=== PATIENT | female | born 1935 | race Caucasian/White ===

== ENCOUNTER → 2017-03-21 | Day surgery (SDC) | payer MEDICARE ==
[~2017-03-21] MED LIST: ALEN70TA39 PO; ATROPINE SULFATE 1% OPHT SOLN 5 ML BTL ONE; BUPR-86 PO; BUSP5 PO; CALC600T34 PO; DEXAMETHASONE SOD PHOS 4 MG/ML VIAL ONE; EPINEPHrine HCL (1:1000) 1 MG/ML VIAL ONE; FLURBIPROFEN 0.03% OPHT SOLN 2.5 ML BTL ONE; GALA4 PO; HYALURONIDASE/LIDOCAINE/BUPIVACAINE 11 ML SYR TL ONE; LACTATED RINGER'S 1000 ML INJ 1,000 ML ONE; LEVO75TA3 PO; MAGN400 PO; MICA40TA2 PO; NEOMYCIN/POLYMYXIN/DEXAMETHASONE OPTH OINT 3.5 GM TUBE ONE; PHENYLEPHRINE HCL 2.5 % OPTH SOLN 15 ML BTL ONE; PRIS50TA PO; REFR0.5D4 EACH EYE; SODIUM CHLORIDE 0.9% INJ 10 ML ONE; ST JTAB PO; TETRACAINE 0.5% OPTH SOLN 15 ML BTL ONE; TRIAMCINOLONE ACETONIDE 40 MG/ML VIAL ONE; TROPICAMIDE 1% OPHT SOLN 15 ML BTL ONE; VITA400C28 PO; ZOCO80TA PO; ceFAZolin INJ 1,000 MG VIAL ONE
--- NOTE | 2017-04-07 20:27 | MP ---
cc: CALROS JUAN MD DATE OF SURGERY: 03/21/2017. PREOPERATIVE DIAGNOSIS: Branch retinal vein occlusion and nonclearing vitreous hemorrhage, right eye. POSTOPERATIVE DIAGNOSIS: Branch retinal vein occlusion and nonclearing vitreous hemorrhage, right eye. OPERATION: Pars plana vitrectomy, endolaser, right eye. SURGEON: Carlos Juan MD ANESTHESIA: MAC. COMPLICATIONS: None. DESCRIPTION OF THE PROCEDURE IN DETAIL: After the patient was given informed consent and retrobulbar anesthesia, she was brought to the operating room and prepared and draped in the usual sterile fashion. A wire lid speculum was placed in the patient's right eye. 23-gauge vitrectomy cannulas were then placed in the lower temporal, supratemporal and supranasal quadrants 3 mm posterior to the corneoscleral limits. An infusion cannula was placed temporally. Core vitrectomy was then performed. There were several attachments of the posterior vitreous to fibrovascular tissue which was easily excised using the vitreous cutter and vitrectomy was carried out as far as possible to the vitreous base. Some additional endolaser was used to place laser in areas of ischemic retina. Careful indirect ophthalmoscopy with scleral depressions was then performed. No peripheral ___ were noted. The three vitrectomy cannulas were then removed. Subconjunctival injections of dexamethasone and Ancef were placed. An Atropine drop, Maxitrol ointment, patch and shield were then applied. The patient tolerated the procedure well. There were no complications. She will follow up tomorrow in our [facility]. Carlos Juan MD TAB/JC /7:41 PM /8:13 PM
== END | disposition home or self-care (01) ==
LOC: ESDC 12:05
PROVIDERS: ATTEND Ophthalmology Retina Specialist
DX: H43.11 Vitreous hemorrhage, right eye (principal)
CPT/HCPCS: 00145; 67043; J0171; J0690; J1100; J7120; J3301

== ENCOUNTER 2018-08-23 12:24 | Inpatient (IN) ==
[2018-08-23 13:21] LABS: Baso # (Auto) 0.1 th/mm3 (0.0-0.2); Baso % (Auto) 0.9 % (0.0-2.0); Eos # (Auto) 0.1 th/mm3 (0.0-0.4); Eos % (Auto) 1.4 % (0.0-4.0); Hemoglobin 8.9 gm/dL (11.6-15.3); Lymph # (Auto) 1.1 th/mm3 (1.0-4.8); Lymph % (Auto) 14.2 % (9.0-44.0); Mean Corpuscular HGB Conc 34.1 % (32.0-36.0); Mean Corpuscular Hemoglobin 31.4 pg (27.0-34.0); Mean Corpuscular Volume 92.3 fL (80.0-100.0); Mean Platelet Volume 8.8 fL (7.0-11.0); Mono # (Auto) 1.2 th/mm3 (0.0-0.9); Mono % (Auto) 16.1 % (0.0-8.0); Neut # (Auto) 5.1 th/mm3 (1.8-7.7); Neut % (Auto) 67.4 % (16.0-70.0); Platelet Count 250 th/mm3 (150-450); Red Blood Count 2.82 mil/mm3 (4.00-5.30); White Blood Count 7.6 th/mm3 (4.0-11.0)
[2018-08-23 13:31] LABS: Activated Partial Thrombo Time 22.2 sec (23.4-31.7); Prothrombin Time 10.2 sec (9.8-11.6)
--- NOTE | 2018-08-23 13:33 | ED ---
HPI General Chief complaint: GI Bleed Stated complaint: GI Time Seen by Provider: 08/23/18 12:56 Source: patient and family Mode of arrival: ambulatory Limitations: no limitations History of Present Illness HPI Narrative: 83-year-old female with a history of gastric ulcers and anemia presents to the emergency department for evaluation of melanotic stools, weakness, nausea and vomiting, and leg cramping that started a couple days ago. She states that she is due for a colonoscopy and EGD next Sunday but does not feel like she can wait until then because she feels weak. Her last bowel movement was this morning and was normal except for the dark stool. She denies chest pain, shortness of breath, heart palpitations, fever or chills. She denies abdominal pain or diarrhea. 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 Her primary care physician is Dr. Hodge and her psychiatrist is Dr. Renteria. She states her last colonoscopy and EGD was about 2 years ago. Denies history of cardiac problems or history. Does not take blood thinners or anticoagulants. Related Data Home Medications Medication Instructions Recorded Confirmed bupropion HCl 150 mg PO QAM 08/23/18 08/23/18 buspirone 5 mg PO TID 08/23/18 08/23/18 calcium carbonate [Calcium 600] 600 mg PO BID 08/23/18 08/23/18 cholecalciferol (vitamin D3) 400 unit PO DAILY 08/23/18 08/23/18 [Vitamin D3] desvenlafaxine 50 mg PO DAILY 08/23/18 08/23/18 galantamine 16 mg PO QAM 08/23/18 08/23/18 iron fum,ax-wdpay-Ifpdl,C no.9 1 cap PO DAILY 08/23/18 08/23/18 [Integra Plus] levothyroxine 125 mcg PO DAILY 08/23/18 08/23/18 magnesium oxide 400 mg PO DAILY 08/23/18 08/23/18 memantine 10 mg PO DAILY 08/23/18 08/23/18 simvastatin 80 mg PO QPM 08/23/18 08/23/18 telmisartan 40 mg PO DAILY 08/23/18 08/23/18 Allergies Allergy/AdvReac Type Severity Reaction Status Date / Time Sulfa (Sulfonamide Allergy Intermediate UNK Verified 08/23/18 14:02 Antibiotics) tobramycin [From Tobrex] Allergy Drowsiness Verified 08/23/18 14:02 Review of Systems ROS: all other systems reviewed are negative PMFSH Social History Social History Substance History: No History of Abuse Second Hand Smoke Exposure: No Smoking Status: Never smoker How Often Do You Have a Drink Containing Alcohol: Never Recent Travel in [facility] within the Last 8 Weeks: No Recent Out of Country Travel within the Last 8 Weeks: No Immunization History Tetanus Immunization: Unsure Exam Narrative Exam Narrative: GENERAL: Well-developed, well-nourished in no acute distress SKIN: Focused skin assessment warm/dry. Pale conjunctiva, pale skin HEAD: Atraumatic. Normocephalic. EYES: Pupils equal and round. No scleral icterus. No injection or drainage. ENT: No nasal bleeding or discharge. Mucous membranes pink and moist. NECK: Trachea midline. No JVD. No lymphadenopathy CARDIOVASCULAR: Regular rate and rhythm. No murmur appreciated. RESPIRATORY: No accessory muscle use. Clear to auscultation. Breath sounds equal bilaterally. GASTROINTESTINAL: Abdomen soft, non-tender, nondistended. Hepatic and splenic margins not palpable. Rectal exam performed with nurse present-old hemorrhoids, nonbleeding present. Good rectal tone. Black stool MUSCULOSKELETAL: No obvious deformities. No clubbing. No cyanosis. No edema. No tenderness to palpation of the calves NEUROLOGICAL: Awake and alert. No obvious cranial nerve deficits. Motor grossly within normal limits. Normal speech. PSYCHIATRIC: Appropriate mood and affect; insight and judgment normal. Course Initial Documented Vital Signs Temperature 97.5 F L 08/23/18 12:31 Pulse Rate 68 08/23/18 12:31 Respiratory Rate 18 08/23/18 12:31 Blood Pressure 119/58 L 08/23/18 12:31 Pulse Oximetry 100 08/23/18 12:31 Last Documented Vital Signs Temperature 97.7 F 08/26/18 10:53 Pulse Rate 68 08/26/18 12:12 Respiratory Rate 16 08/26/18 12:12 Blood Pressure 126/77 08/26/18 12:12 Pulse Oximetry 94 L 08/26/18 12:12 Medical Decision Making BRIANNA Attestation BRIANNA supervised visit: Yes Attestation: I, Dr. Mcbride, have reviewed the advance practice practitioner's documentation and am in agreement, met with the patient face to face, made the diagnosis, and the medical decision making was done by me. *My assessment and Findings: Symptomatic anemia vs. GI bleed vs. peptic ulcer vs. gastritis 83yo F with gastric ulcer here with new generalized weakness and black tarry stool. Labs reviewed, no leukocytosis. H/H low at 8.9/26.0. It was 12.2/ 35.8 in 2013. BUN/creatinine elevated at 33/1.26. Troponin negative. Hemaprompt positive. Discussed with Dr. Cordon and accepted to his service. MDM Narrative Medical decision making narrative: 83-year-old female with a history of gastric ulcers and anemia presents to the emergency department evaluation of nausea, one episode of nonbloody vomitus, black stools, and weakness that worsened today. Says she is due for colonoscopy and EGD Sunday with Dr. Pelletier but her friends advised to come in sooner as she feels weak. Her last EDG/ colonoscopy was 2 years ago, per family. Upon exam, patient appears pale but well does not appear anxious. Her abdomen is soft, nontender to palpation without rebound tenderness. Rectal exam with good rectal tone, nonbleeding hemorrhoids, and black stool. Hemoccult positive stool. Labs ordered for evaluation and notable for RBC 2.82, H/H 8.9/26.0, INR 1.0, Na 140, K 4.5, BUN/Cr 33/1.26, troponin <0.02, UA noncontributory. EKG show sinus rhythm rate [address] elevation or depression. 500mL NS administered for hydration. I discussed the lab findings and believe she would benefit admission for an observation period. She has anemia, which appears new to her from the labs in 2013. Also has a GI bleed with melena and Hemoccult positive stool. My attending discussed this case with Dr. Garcia who agreed to the admission. Medical Screen Exam Complete: Yes Emergency Medical Condition: Yes Differential Diagnosis Differential Diagnosis: Acute anemia, GI bleed, gastric ulcer Lab Data Result diagrams: 08/26/18 04:35 08/24/18 07:41 Lab Results 08/23/18 08/23/18 08/23/18 Range/Units 13:08 13:08 13:08 WBC 7.6 (4.0-11.0) th/mm3 RBC 2.82 L (4.00-5.30) mil/mm3 Hgb 8.9 L (11.6-15.3) gm/dL Hct 26.0 L (35.0-46.0) % MCV 92.3 (80.0-100.0) fL MCH 31.4 (27.0-34.0) pg MCHC 34.1 (32.0-36.0) % RDW 14.0 (11.6-17.2) % Plt Count 250 (150-450) th/mm3 MPV 8.8 (7.0-11.0) fL Neut % (Auto) 67.4 (16.0-70.0) % Lymph % (Auto) 14.2 (9.0-44.0) % [place] % (Auto) 16.1 H (0.0-8.0) % Eos % (Auto) 1.4 (0.0-4.0) % Baso % (Auto) 0.9 (0.0-2.0) % Neut # (Auto) 5.1 (1.8-7.7) th/mm3 Lymph # (Auto) 1.1 (1.0-4.8) th/mm3 [place] # (Auto) 1.2 H (0.0-0.9) th/mm3 Eos # (Auto) 0.1 (0.0-0.4) th/mm3 Baso # (Auto) 0.1 (0.0-0.2) th/mm3 WBC Differential . Differential Comment Auto diff final PT 10.2 (9.8-11.6) sec INR 1.0 Ratio APTT 22.2 L (23.4-31.7) sec Sodium 140 (136-145) meq/L Potassium 4.5 (3.5-5.1) meq/L Chloride 107 (98-107) meq/L Carbon Dioxide 26.7 (21.0-32.0) meq/L Anion Gap 6 (5-15) meq/L BUN 33 H (7-18) mg/dL Creatinine 1.26 H (0.50-1.00) mg/dL Estimated GFR 40 L (>89) mL/min Random Glucose 80 (74-106) mg/dL Calcium 8.6 (8.5-10.1) mg/dL Magnesium 2.2 (1.5-2.5) mg/dL Iron (50-170) mcg/dL TIBC (250-450) mcg/dL % Saturation (20-50) % Ferritin (8-252) ng/mL Total Bilirubin 0.4 (0.2-1.0) mg/dL AST 15 (15-37) U/L ALT 20 (10-53) U/L Alkaline Phosphatase 25 L (45-117) U/L Troponin I Less than 0.02 L (0.02-0.05) ng/mL Total Protein 6.9 (6.4-8.2) g/dL Albumin 3.6 (3.4-5.0) g/dL Urine Color (Yellw/Straw) Urine Clarity (Clear) Urine pH (5.0-8.5) Ur Specific [place] (1.002-1.035) Urine Protein (Neg-Trace) mg/dL Urine Glucose (UA) (Negative) mg/dL Urine Ketones (Negative) mg/dL Urine Occult Blood (Negative) Urine Nitrate (Negative) Urine Bilirubin (Negative) Urine Urobilinogen (Less than 2) mg/dL Ur Leukocyte Esterase (Negative) Urine RBC (0-3) /hpf Urine WBC (0-5) /hpf Urine Mucus (Occasional) /lpf Micro UA Comment Ur Microscopic Review Urine Culture Comments Blood Type Antibody Screen MTS Gel Crossmatch Bld Prod Order Comment 08/23/18 08/24/18 08/24/18 Range/Units 13:22 07:41 07:41 WBC 8.6 (4.0-11.0) th/mm3 RBC 2.78 L (4.00-5.30) mil/mm3 Hgb 8.8 L (11.6-15.3) gm/dL Hct 25.8 L (35.0-46.0) % MCV 92.8 (80.0-100.0) fL MCH 31.5 (27.0-34.0) pg MCHC 33.9 (32.0-36.0) % RDW 14.0 (11.6-17.2) % Plt Count 238 (150-450) th/mm3 MPV 8.6 (7.0-11.0) fL Neut % (Auto) 72.3 H (16.0-70.0) % Lymph % (Auto) 11.5 (9.0-44.0) % [place] % (Auto) 14.1 H (0.0-8.0) % Eos % (Auto) 1.5 (0.0-4.0) % Baso % (Auto) 0.6 (0.0-2.0) % Neut # (Auto) 6.2 (1.8-7.7) th/mm3 Lymph # (Auto) 1.0 (1.0-4.8) th/mm3 [place] # (Auto) 1.2 H (0.0-0.9) th/mm3 Eos # (Auto) 0.1 (0.0-0.4) th/mm3 Baso # (Auto) 0.1 (0.0-0.2) th/mm3 WBC Differential . Differential Comment Auto diff final PT (9.8-11.6) sec INR Ratio APTT (23.4-31.7) sec Sodium 142 (136-145) meq/L Potassium 4.3 (3.5-5.1) meq/L Chloride 109 H (98-107) meq/L Carbon Dioxide 25.8 (21.0-32.0) meq/L Anion Gap 7 (5-15) meq/L BUN 29 H (7-18) mg/dL Creatinine 1.29 H (0.50-1.00) mg/dL Estimated GFR 39 L (>89) mL/min Random Glucose 85 (74-106) mg/dL Calcium 9.0 (8.5-10.1) mg/dL Magnesium (1.5-2.5) mg/dL Iron (50-170) mcg/dL TIBC (250-450) mcg/dL % Saturation (20-50) % Ferritin (8-252) ng/mL Total Bilirubin 0.4 (0.2-1.0) mg/dL AST 16 (15-37) U/L ALT 16 (10-53) U/L Alkaline Phosphatase 25 L (45-117) U/L Troponin I (0.02-0.05) ng/mL Total Protein 6.6 (6.4-8.2) g/dL Albumin 3.3 L (3.4-5.0) g/dL Urine Color Yellow (Yellw/Straw) Urine Clarity Clear (Clear) Urine pH 5.0 (5.0-8.5) Ur Specific [place] 1.015 (1.002-1.035) Urine Protein Negative (Neg-Trace) mg/dL Urine Glucose (UA) Negative (Negative) mg/dL Urine Ketones Negative (Negative) mg/dL Urine Occult Blood Negative (Negative) Urine Nitrate Negative (Negative) Urine Bilirubin Negative (Negative) Urine Urobilinogen Less than 2 (Less than 2) mg/dL Ur Leukocyte Esterase Negative (Negative) Urine RBC 1 (0-3) /hpf Urine WBC 2 (0-5) /hpf Urine Mucus Few H (Occasional) /lpf Micro UA Comment Culture not ind Ur Microscopic Review Not Reportable Urine Culture Comments Culture not ind Blood Type Antibody Screen MTS Gel Crossmatch Bld Prod Order Comment 08/24/18 08/25/18 08/25/18 Range/Units 07:41 07:45 14:32 WBC 8.7 (4.0-11.0) th/mm3 RBC 2.49 L (4.00-5.30) mil/mm3 Hgb 7.8 L (11.6-15.3) gm/dL Hct 23.2 L (35.0-46.0) % MCV 93.2 (80.0-100.0) fL MCH 31.3 (27.0-34.0) pg MCHC 33.6 (32.0-36.0) % RDW 14.0 (11.6-17.2) % Plt Count 210 (150-450) th/mm3 MPV 8.5 (7.0-11.0) fL Neut % (Auto) 69.3 (16.0-70.0) % Lymph % (Auto) 12.4 (9.0-44.0) % [place] % (Auto) 17.4 H (0.0-8.0) % Eos % (Auto) 0.5 (0.0-4.0) % Baso % (Auto) 0.4 (0.0-2.0) % Neut # (Auto) 6.0 (1.8-7.7) th/mm3 Lymph # (Auto) 1.1 (1.0-4.8) th/mm3 [place] # (Auto) 1.5 H (0.0-0.9) th/mm3 Eos # (Auto) 0.0 (0.0-0.4) th/mm3 Baso # (Auto) 0.0 (0.0-0.2) th/mm3 WBC Differential . Differential Comment Auto diff final PT (9.8-11.6) sec INR Ratio APTT (23.4-31.7) sec Sodium (136-145) meq/L Potassium (3.5-5.1) meq/L Chloride (98-107) meq/L Carbon Dioxide (21.0-32.0) meq/L Anion Gap (5-15) meq/L BUN (7-18) mg/dL Creatinine (0.50-1.00) mg/dL Estimated GFR (>89) mL/min Random Glucose (74-106) mg/dL Calcium (8.5-10.1) mg/dL Magnesium (1.5-2.5) mg/dL Iron 18 L (50-170) mcg/dL TIBC 297 (250-450) mcg/dL % Saturation 6.1 L (20-50) % Ferritin 67 (8-252) ng/mL Total Bilirubin (0.2-1.0) mg/dL AST (15-37) U/L ALT (10-53) U/L Alkaline Phosphatase (45-117) U/L Troponin I (0.02-0.05) ng/mL Total Protein (6.4-8.2) g/dL Albumin (3.4-5.0) g/dL Urine Color (Yellw/Straw) Urine Clarity (Clear) Urine pH (5.0-8.5) Ur Specific [place] (1.002-1.035) Urine Protein (Neg-Trace) mg/dL Urine Glucose (UA) (Negative) mg/dL Urine Ketones (Negative) mg/dL Urine Occult Blood (Negative) Urine Nitrate (Negative) Urine Bilirubin (Negative) Urine Urobilinogen (Less than 2) mg/dL Ur Leukocyte Esterase (Negative) Urine RBC (0-3) /hpf Urine WBC (0-5) /hpf Urine Mucus (Occasional) /lpf Micro UA Comment Ur Microscopic Review Urine Culture Comments Blood Type A Positive Antibody Screen Negative MTS Gel Crossmatch See Detail Bld Prod Order Comment 08/26/18 Range/Units 04:35 WBC 8.6 (4.0-11.0) th/mm3 RBC 3.24 L (4.00-5.30) mil/mm3 Hgb 10.5 L D (11.6-15.3) gm/dL Hct 30.0 L (35.0-46.0) % MCV 92.4 (80.0-100.0) fL MCH 32.3 (27.0-34.0) pg MCHC 35.0 (32.0-36.0) % RDW 14.0 (11.6-17.2) % Plt Count 194 (150-450) th/mm3 MPV 9.0 (7.0-11.0) fL Neut % (Auto) 65.2 (16.0-70.0) % Lymph % (Auto) 15.3 (9.0-44.0) % [place] % (Auto) 17.8 H (0.0-8.0) % Eos % (Auto) 1.0 (0.0-4.0) % Baso % (Auto) 0.7 (0.0-2.0) % Neut # (Auto) 5.6 (1.8-7.7) th/mm3 Lymph # (Auto) 1.3 (1.0-4.8) th/mm3 [place] # (Auto) 1.5 H (0.0-0.9) th/mm3 Eos # (Auto) 0.1 (0.0-0.4) th/mm3 Baso # (Auto) 0.1 (0.0-0.2) th/mm3 WBC Differential . Differential Comment Auto diff final PT (9.8-11.6) sec INR Ratio APTT (23.4-31.7) sec Sodium (136-145) meq/L Potassium (3.5-5.1) meq/L Chloride (98-107) meq/L Carbon Dioxide (21.0-32.0) meq/L Anion Gap (5-15) meq/L BUN (7-18) mg/dL Creatinine (0.50-1.00) mg/dL Estimated GFR (>89) mL/min Random Glucose (74-106) mg/dL Calcium (8.5-10.1) mg/dL Magnesium (1.5-2.5) mg/dL Iron (50-170) mcg/dL TIBC (250-450) mcg/dL % Saturation (20-50) % Ferritin (8-252) ng/mL Total Bilirubin (0.2-1.0) mg/dL AST (15-37) U/L ALT (10-53) U/L Alkaline Phosphatase (45-117) U/L Troponin I (0.02-0.05) ng/mL Total Protein (6.4-8.2) g/dL Albumin (3.4-5.0) g/dL Urine Color (Yellw/Straw) Urine Clarity (Clear) Urine pH (5.0-8.5) Ur Specific [place] (1.002-1.035) Urine Protein (Neg-Trace) mg/dL Urine Glucose (UA) (Negative) mg/dL Urine Ketones (Negative) mg/dL Urine Occult Blood (Negative) Urine Nitrate (Negative) Urine Bilirubin (Negative) Urine Urobilinogen (Less than 2) mg/dL Ur Leukocyte Esterase (Negative) Urine RBC (0-3) /hpf Urine WBC (0-5) /hpf Urine Mucus (Occasional) /lpf Micro UA Comment Ur Microscopic Review Urine Culture Comments Blood Type Antibody Screen MTS Gel Crossmatch Bld Prod Order Comment Imaging Data Radiologist's impression: Abdomen/Pelvis CT 08/26/18 00:00 CONCLUSION: 1. Multiple hepatic hypodensities are overtly benign and most likely represent cysts or hemangiomas. 2. Right basilar pleural nodules and regional pleural thickening are probably atelectatic. 3. Bilateral renal cortical cysts. 4. Hydropic gallbladder. Nonspecific finding and can be seen in prolonged fasting. 5. Old kyphoplasty at L1. No acute osseous injury Discharge Plan Discharge Disposition Patient Disposition: ED Admit(ED Internal Use Only) Discharge Condition Condition: Stable Discharge Order Discharge Orders: ED Use Only Admit Order (Routine); Ordered 08/23/18 Ordered By: Eri Dudley Discharge Details Diagnosis: Symptomatic anemia, GI bleed Physicians Team ED Provider: Korin Mcbride ED Midlevel Provider: Eri Dudley Primary Care Provider: Kye Hodge Attending Provider: Gage Garcia Other Providers: Bud Perez ; Stiven Petty Status ED Status: Left Department Discharge Information Discharge Date/Time: 08/23/18 16:36
[2018-08-23 13:37] LABS: Alanine Aminotransferase 20 U/L (10-53); Albumin 3.6 g/dL (3.4-5.0); Anion Gap 6 meq/L (5-15); Aspartate Aminotransferase 15 U/L (15-37); Blood Urea Nitrogen 33 mg/dL (7-18); Calcium 8.6 mg/dL (8.5-10.1); Carbon Dioxide 26.7 meq/L (21.0-32.0); Chloride 107 meq/L (98-107); Glomerular Filtration Rate 40 mL/min (>89); Glucose,Random 80 mg/dL (74-106); Magnesium 2.2 mg/dL (1.5-2.5); Potassium 4.5 meq/L (3.5-5.1); Sodium 140 meq/L (136-145)
[2018-08-23 13:41] LABS: Alkaline Phosphatase 25 U/L (45-117); Total Protein 6.9 g/dL (6.4-8.2)
[2018-08-23] MEDS ORDERED: Sodium Chlor 0.9% Inj 500 ML IV.SIG SCH (14:00)
[2018-08-23 14:06] LABS: Bilirubin,Urine Negative (Negative); Color,Urine Yellow (Yellw/Straw); Glucose,Urine (UA) Negative (Negative); Leukocyte Esterase,Urine Negative (Negative); Mucus,Urine Few /lpf (Occasional); Nitrite,Urine Negative (Negative); Specific Gravity,Urine 1.015 (1.002-1.035)
[2018-08-23 14:19] LABS: Clarity,Urine Clear (Clear)
[2018-08-23] MEDS ORDERED: Acetaminophen 325 MG Tablet PO PRN (16:49)
--- NOTE | 2018-08-23 17:03 | P.HPIM ---
History of Present Illness Primary Care Physician: Kye Hodge MD, PhD History of Present Illness: Ms. Walker is an 83 y/o female with anemia, hx of gastric ulcer in 2017, CKD, stage 3, memory deficits, HTN, hyperlipidemia, and hypothyroidism. She presented to the ED at [facility] [place]18 with complaints of increased weakness. Pt has been having issues with anemia since 04/2018 when her Hgb went from 11.5 to 10.9. In review of outpt labs her H/H has been slowly decreasing since then and on most recent outpt labs her Hgb was 8.5 on 08/13/18. She has a hx of gastric ulcer in 2017. Pt was seen by [facility] as an outpt and is reportedly set up for an outpt EGD/colonoscopy on 08/28/[address] Pelletier. Pt presented to the ED with complaints of generalized weakness, and she had an episode of vomiting this morning that was reportedly brown. She denies any hematemesis or coffee-ground emesis. She denies any abd pain. She has been having issues with dark stools which she reports she unclear of how long thats been going on but thinks that its been as long as shes been on iron supplements. Pt denies any SOB, chest pain, palpitations, dizziness, lightheadedness, abdominal pain, reflux, or dysphagia. Past Medical Hx: HTN Hyperlipidemia Hypothyroidism Anemia Gastric ulcer in 2017 Memory deficits Major depression DDD lumbar spine Past Surgical Hx EGD on 12/13/[address] Pelletier --> gastritis, esophagitis, duodenitis, hiatal hernia EGD on 10/16/[address] Pelletier --> gastritis, healed ulcer in the antrum EGD on 09/15/[address] Pelletier --> 2 clean based ulcers, no active bleeding. Cataracts surgery Total abdominal hysterectomy Humerus fracture repair Family Hx: Noncontributory Social Hx Denies any alcohol, tobacco or illicit drug use Lives in a private residence, has a roommate Diagnosis (1) Symptomatic anemia: (2) HTN (hypertension): (3) Hypothyroidism: (4) Hyperlipidemia: Medications and Allergies Allergies Allergy/AdvReac Type Severity Reaction Status Date / Time Sulfa (Sulfonamide Allergy Intermediate UNK Verified 08/23/18 14:02 Antibiotics) tobramycin [From Tobrex] Allergy Drowsiness Verified 08/23/18 14:02 Home Medications Medication Instructions Recorded Confirmed Type bupropion HCl 150 mg PO QAM 08/23/18 08/23/18 History buspirone 5 mg PO TID 08/23/18 08/23/18 History calcium carbonate [Calcium 600] 600 mg PO BID 08/23/18 08/23/18 History cholecalciferol (vitamin D3) 400 unit PO DAILY 08/23/18 08/23/18 History [Vitamin D3] desvenlafaxine 50 mg PO DAILY 08/23/18 08/23/18 History galantamine 16 mg PO QAM 08/23/18 08/23/18 History iron fum,nm-wauzx-Xaxzj,C no.9 1 cap PO DAILY 08/23/18 08/23/18 History [Integra Plus] levothyroxine 125 mcg PO DAILY 08/23/18 08/23/18 History magnesium oxide 400 mg PO DAILY 08/23/18 08/23/18 History memantine 10 mg PO DAILY 08/23/18 08/23/18 History simvastatin 80 mg PO QPM 08/23/18 08/23/18 History telmisartan 40 mg PO DAILY 08/23/18 08/23/18 History Active Medications: Active Medications Acetaminophen (Tylenol) 650 mg PO Q4H PRN PRN Reason: Temp > 100.4 Al Hydroxide/Mg Hydroxide (Milk Of Magnesia Liq) 30 ml PO Q12H PRN PRN Reason: Mild Constipation Bupropion HCl (Wellbutrin Xl) 150 mg PO QAM DOLLY Buspirone HCl (Buspar) 5 mg PO TID DO[facility] Memantine (Namenda) 10 mg PO DAILY [facility] Non-Formulary Medication (Calcium Carbonate [Calcium 600]) 600 mg PO BID [facility] Non-Formulary Medication (Desvenlafaxine [Desvenlafaxine]) 50 mg PO DAILY [facility] Non-Formulary Medication (Iron Fum,Mz-Oxumo-Oeehs,C No.9 [Integra Plus]) 1 cap PO DAILY [facility] Non-Formulary Medication (Simvastatin [Simvastatin]) 80 mg PO QPM [facility] Non-Formulary Medication (Galantamine [Galantamine]) 16 mg PO QAM [facility] Ondansetron HCl (Zofran Inj) 4 mg IV.PUSH Q6H PRN PRN Reason: NAUSEA OR VOMITING Sodium Chloride (Ns Flush) 2 ml IV.FLUSH PRN PRN PRN Reason: FLUSH AFTER USING IV ACCESS Sodium Chloride (Ns Flush) 2 ml IV.FLUSH BID DOLLY Sodium Chloride (Ns Flush) 2 ml IV.FLUSH PRN PRN PRN Reason: FLUSH AFTER USING IV ACCESS Physical Exam Vital signs: Last Vital Signs Temp 98.2 F 08/23/18 17:01 Pulse 67 08/23/18 17:01 Resp 18 08/23/18 17:01 BP 138/64 08/23/18 17:01 Pulse Ox 97 08/23/18 17:01 Narrative: GENERAL: NAD, AAOx3, memory difficulties SKIN: Warm and dry. HEENT: Atraumatic. Normocephalic. Pupils equal and round. No scleral icterus. No injection or drainage. No nasal bleeding or discharge. Mucous membranes pink and moist. NECK: Trachea midline. No JVD. CARDIO: Regular rate and rhythm. RESP: No accessory muscle use. Clear to auscultation. Breath sounds equal bilaterally. ABD: +BS, soft, non-tender, nondistended. Hepatic and splenic margins not palpable. EXT: Extremities without clubbing, cyanosis, or edema. No obvious deformities. NEURO: Awake and alert. No obvious cranial nerve deficits. Motor grossly within normal limits. Five out of 5 muscle strength in the arms and legs. Normal speech. PSYCH: Appropriate mood and affect; insight and judgment normal. Results Labs CBC & Chem 7: 08/23/18 13:08 08/23/18 13:08 Caprini VTE Risk Assessment Caprini VTE Risk Assessment: Moderate/High Risk (score >= 2) VTE Pharmacological Exception Reason: Documented Caprini Risk Assessment Model: Point Value = 1 Point Value = 2 Point Value = 3 Point Value = 5 Age 41-60 Minor surgery BMI > 25 kg/m2 Swollen legs Varicose veins or History of unexplained or recurrent spontaneous Oral contraceptives or hormone replacement Sepsis (< 1 month) Serious lung disease, including pneumonia (< 1 month) Abnormal pulmonary function Acute myocardial infarction Congestive heart failure (< 1 month) History of inflammatory bowel disease Medical patient at bed rest Age 61-74 Arthroscopic surgery Major open surgery (> 45 min) Laparoscopic surgery (> 45 min) Malignancy Confined to bed (> 72 hours) Immobilizing plaster cast Central venous access Age >= 75 History of VTE Family history of VTE Factor V Leiden Prothrombin [id number] Lupus anticoagulant Anticardiolipin antibodies Elevated serum homocysteine Heparin-induced thrombocytopenia Other congenital or acquired thrombophilia Stroke (< 1 month) Elective arthroplasty Hip, pelvis, or leg fracture Acute spinal cord injury (< 1 month) Prophylaxis Regimen: Total Risk Factor Score Risk Level Prophylaxis Regimen 0-1 Low Early ambulation 2 Moderate Order ONE of the following: *Sequential Compression Device (SCD) *Heparin 5000 units SQ BID 3-4 Higher Order ONE of the following medications: *Heparin 5000 units SQ TID *Enoxaparin/Lovenox 40 mg SQ daily (WT < 150 kg, CrCl > 30 mL/min) *Enoxaparin/Lovenox 30 mg SQ daily (WT < 150 kg, CrCl > 10-29 mL/min) *Enoxaparin/Lovenox 30 mg SQ BID (WT < 150 kg, CrCl > 30 mL/min) AND/OR *Sequential Compression Device (SCD) 5 or more Highest Order ONE of the following medications: *Heparin 5000 units SQ TID (Preferred with Epidurals) *Enoxaparin/Lovenox 40 mg SQ daily (WT < 150 kg, CrCl > 30 mL/min) *Enoxaparin/Lovenox 30 mg SQ daily (WT < 150 kg, CrCl > 10-29 mL/min) *Enoxaparin/Lovenox 30 mg SQ BID (WT < 150 kg, CrCl > 30 mL/min) AND *Sequential Compression Device (SCD) Assessment and Plan Assessment (1) Symptomatic anemia: Code(s): D64.9 - Anemia, unspecified Status: Chronic (2) HTN (hypertension): Code(s): I10 - Essential (primary) hypertension Status: Chronic (3) Hypothyroidism: Code(s): E03.9 - Hypothyroidism, unspecified Status: Chronic (4) Hyperlipidemia: Code(s): E78.5 - Hyperlipidemia, unspecified Status: Chronic Plan Symptomatic anemia Hx of PUD - Pt is an 83 y/o female with anemia, hx of gastric ulcer in 2017, CKD, stage 3 , memory deficits, HTN, hyperlipidemia, and hypothyroidism. She presented to the ED at [facility] [place]23/18 with complaints of increased weakness and vomiting. Pt has been having issues with anemia since 04/2018 when her Hgb went from 11.5 to 10.9. In review of outpt labs her H/H has been slowly decreasing since then and on most recent outpt labs her Hgb was 8.5 on 08/13/18. She has a hx of gastric ulcer in 2017. Pt was seen by [facility] as an outpt and is reportedly set up for an outpt EGD/colonoscopy on 08/28/[address] Pelletier. Pt presented to the ED with complaints of generalized weakness, and she had an episode of vomiting this morning that was reportedly brown. She reported dark tarry stools as well but this has been going on for some time, and feels that its been since she started on iron supplements. - Labs in the ED noted Hgb 8.9 - She has been started on Protonix 40mg IV BID - Zofran PRN - Encourage oral intake - Repeat labs in AM - If pts labs are stable and she tolerates oral intake without any further N/V, will plan for discharge to home and have her followup outpt at her previously scheduled appt for EGD/colonoscopy on Sunday - If her labs decrease or the pt has any active GIB then we will consult GI in the AM and likely scope earlier next week. - PT evaluation in AM - DVT prophylaxis with SCDs HTN - Resume home meds - Monitor Hyperlipidemia - Cont. home meds Hypothyroidism - Cont. home meds
[2018-08-23] MEDS: Pantoprazole Inj 40 MG Vial IV.PUSH SCH (21:15)
[2018-08-23] MEDS: Calcium Carbonate 500 MG Tablet PO SCH (21:18)
[2018-08-23] MEDS: buPROPion 150 MG 12 HR Tablet PO SCH (21:21)
[2018-08-24] MEDS: Levothyroxine 125 MCG Tablet PO SCH (06:12)
--- NOTE | 2018-08-24 07:58 | P.PNIM ---
Subjective Interval history: Pt tolerated dinner last night. She states that she wants to go home today Re-evaluated the pt in the afternoon and she had an episode of vomiting a large quantity of emesis with eating only a few bites of breakfast Physical Exam Vital signs: Last Vital Signs Temp 98.0 F 08/24/18 03:11 Pulse 68 08/24/18 03:11 Resp 17 08/24/18 03:11 BP 112/59 L 08/24/18 03:11 Pulse Ox 99 08/24/18 03:11 Narrative: GENERAL: NAD, AAOx3, memory difficulties CARDIO: Regular rate and rhythm. RESP: Clear to auscultation. Breath sounds equal bilaterally. ABD: +BS, soft, non-tender, nondistended. EXT: Extremities without clubbing, cyanosis, or edema. No obvious deformities. Results Labs CBC & Chem 7: 08/24/18 07:41 08/24/18 07:41 Assessment and Plan Assessment (1) Symptomatic anemia: Code(s): D64.9 - Anemia, unspecified Status: Chronic (2) HTN (hypertension): Code(s): I10 - Essential (primary) hypertension Status: Chronic (3) Hypothyroidism: Code(s): E03.9 - Hypothyroidism, unspecified Status: Chronic (4) Hyperlipidemia: Code(s): E78.5 - Hyperlipidemia, unspecified Status: Chronic Plan Symptomatic anemia Hx of PUD - Pt is an 83 y/o female with anemia, hx of gastric ulcer in 2017, CKD, stage 3 , memory deficits, HTN, hyperlipidemia, and hypothyroidism. She presented to the ED at [facility] [place] on 08/23/18 with complaints of increased weakness and vomiting. Pt has been having issues with anemia since 04/2018 when her Hgb went from 11.5 to 10.9. In review of outpt labs her H/H has been slowly decreasing since then and on most recent outpt labs her Hgb was 8.5 on 08/13/18. She has a hx of gastric ulcer in 2016. Pt was seen by [facility] as an outpt and is reportedly set up for an outpt EGD/colonoscopy on 08/28/[address] Pelletier. Pt presented to the ED with complaints of generalized weakness, and she had an episode of vomiting this morning that was reportedly brown. She reported dark tarry stools as well but this has been going on for some time, and feels that its been since she started on iron supplements. - Labs in the ED noted Hgb 8.9 - Cont. Protonix 40mg IV BID - Zofran PRN - Encourage oral intake - Awaiting repeat labs this AM - If pts labs are stable and she tolerates oral intake without any further N/V, will plan for discharge to home and have her followup outpt at her previously scheduled appt for EGD/colonoscopy on Sunday - If her labs decrease or the pt has any active GIB then we will consult GI and likely scope earlier next week. - PT evaluation today - DVT prophylaxis with SCDs ADDENDUM: - Re-evaluated the pt in the afternoon and she had vomiting with breakfast and is feeling quite weak. - Discussed with the pt and the family at bedside that with the pts vomiting and weakness it may be difficult for her to tolerate the prep for the colonoscopy on Sunday at home for the scheduled GI procedures on Sunday. They agreed and requested GI consultation. - We will consult GI today to see if they may be able to perform the EGD/ colonoscopy during this admission that way we can try to help provide antiemetics should she need them for the colon prep. - Cont. Antiemetics PRN - Check iron panel. If iron levels are low we will order Venofer. HTN - Resume home meds - Monitor Hyperlipidemia - Cont. home meds Hypothyroidism - Cont. home meds Progress Note: Quality VTE Deep Vein Thrombosis/Pulmonary Embolism Present on Admission: No
[2018-08-24 08:07] LABS: Baso # (Auto) 0.1 th/mm3 (0.0-0.2); Baso % (Auto) 0.6 % (0.0-2.0); Eos # (Auto) 0.1 th/mm3 (0.0-0.4); Eos % (Auto) 1.5 % (0.0-4.0); Hematocrit 25.8 % (35.0-46.0); Hemoglobin 8.8 gm/dL (11.6-15.3); Lymph % (Auto) 11.5 % (9.0-44.0); Mean Corpuscular HGB Conc 33.9 % (32.0-36.0); Mean Corpuscular Hemoglobin 31.5 pg (27.0-34.0); Mean Corpuscular Volume 92.8 fL (80.0-100.0); Mean Platelet Volume 8.6 fL (7.0-11.0); Mono # (Auto) 1.2 th/mm3 (0.0-0.9); Mono % (Auto) 14.1 % (0.0-8.0); Neut # (Auto) 6.2 th/mm3 (1.8-7.7); Neut % (Auto) 72.3 % (16.0-70.0); Platelet Count 238 th/mm3 (150-450); Red Blood Count 2.78 mil/mm3 (4.00-5.30); White Blood Count 8.6 th/mm3 (4.0-11.0)
[2018-08-24 08:32] LABS: Albumin 3.3 g/dL (3.4-5.0); Anion Gap 7 meq/L (5-15); Aspartate Aminotransferase 16 U/L (15-37); Blood Urea Nitrogen 29 mg/dL (7-18); Carbon Dioxide 25.8 meq/L (21.0-32.0); Chloride 109 meq/L (98-107); Glomerular Filtration Rate 39 mL/min (>89); Glucose,Random 85 mg/dL (74-106); Potassium 4.3 meq/L (3.5-5.1); Sodium 142 meq/L (136-145)
[2018-08-24 08:33] LABS: Alanine Aminotransferase 16 U/L (10-53)
[2018-08-24 08:36] LABS: Alkaline Phosphatase 25 U/L (45-117); Total Protein 6.6 g/dL (6.4-8.2)
[2018-08-24] MEDS: buPROPion 150 MG 12 HR Tablet PO SCH (08:55)
[2018-08-24] MEDS: Calcium Carbonate 500 MG Tablet PO SCH ×2 (08:57→20:51)
[2018-08-24] MEDS: Pantoprazole Inj 40 MG Vial IV.PUSH SCH ×2 (08:57→20:51)
[2018-08-24] MEDS ORDERED: [UNRECOGNIZED DRUG - OTHER] PO SCH (09:00)
--- NOTE | 2018-08-24 11:41 | ECG ---
Date Performed: 08/23/2018 Time Performed: 13:23:29 PTAGE: 83 years EKG: Sinus rhythm WITH SINUS ARRHYTHMIA LOW QRS VOLTAGE IN PRECORDIAL LEADS POSSIBLE ANTERIOR MYOCARDIAL INFARCTION ALEXANDER RDERLINE ECG PREVIOUS TRACING : 01/30/2014 08.21 DOCTOR: Hayden Pretty Interpretating Date/Time 08/24/2018 11:34:35
--- NOTE | 2018-08-24 14:10 | P.CONGI ---
History of Present Illness Consult date: 08/24/18 Consult reason: Anemia, vomiting Chief complaint: Symptomatic anemia GI bleed History of Present Illness: This is 83 y/o female with anemia, hx of gastric ulcer in 2017, CKD, HTN, hyperlipidemia, and hypothyroidism who presented to the ED with increased weakness and vomiting. Pt has been having issues with worsening anemia. Denies any obvious GI bleeding. She has a hx of gastric ulcer in 2017. Patient was scheduled to have EGD/colonoscopy on 08/28/[address] Pelletier, but patient started having emesis on Sun. this is not daily, had another one yesterday, she was also weak and that prompted ED visit. She denies any hematemesis or coffee- ground emesis, denies abd pain or change in bowels. She denies any abd pain. Endorses dark stools for a while but she has been on iron supplements. <Jenni Hodges - Last Filed: 08/24/18 13:54> Review of Systems All other systems reviewed negative except as stated in HPI <Jenni Hodges - Last Filed: 08/24/18 13:54> PMFSH - History History Provided By: Patient - Medical History Medical History: Medical History (Last Reviewed 08/24/18 @ 07:42 by Víctor Deleon) ADHD Anemia Anxiety CKD (chronic kidney disease) Hyperlipidemia Hypertension Hypothyroid Lumbar degenerative disc disease Major depressive disorder Mild cognitive impairment Osteopenia Tortuous aorta - Tobacco History Second Hand Smoke Exposure: No Smoking Status: Never smoker - Alcohol History How Often Do You Have a Drink Containing Alcohol: Never - Substance Use History Substance History: No History of Abuse - Travel History Recent Travel in the [place] Within the Last 8 Weeks: No Recent Travel Out of the Country Within the Last 8 Weeks: No - Immunization History Tetanus Immunization: Unsure <Jenni Hodges - Last Filed: 08/24/18 13:54> - Medical History Medical History: Medical History (Last Reviewed 08/24/18 @ 07:42 by Víctor Deleon) ADHD Anemia Anxiety CKD (chronic kidney disease) Hyperlipidemia Hypertension Hypothyroid Lumbar degenerative disc disease Major depressive disorder Mild cognitive impairment Osteopenia Tortuous aorta <Bud Perez - Last Filed: 08/25/18 08:55> Medications and Allergies Active Medications: Active Medications Acetaminophen (Tylenol) 650 mg PO Q4H PRN PRN Reason: Temp > 100.4 Al Hydroxide/Mg Hydroxide (Milk Of Magnesia Liq) 30 ml PO Q12H PRN PRN Reason: Mild Constipation Atorvastatin Calcium (Lipitor) 40 mg PO QPM [facility] Last Admin: 08/23/18 21:24 Dose: 40 mg Bupropion HCl (Wellbutrin Sr) 150 mg PO DAILY [facility] Last Admin: 08/24/18 08:55 Dose: 150 mg Buspirone HCl (Buspar) 5 mg PO TID [facility] Last Admin: 08/24/18 08:56 Dose: 5 mg Calcium Carbonate (Oscal) 500 mg PO BID [facility] Last Admin: 08/24/18 08:57 Dose: 500 mg Galantamine Hydrobromide (Razadyne) 8 mg PO BID [facility] Last Admin: 08/24/18 08:55 Dose: 8 mg Levothyroxine Sodium (Synthroid) 125 mcg PO DAILY@0600 [facility] Last Admin: 08/24/18 06:12 Dose: 125 mcg Losartan Potassium (Cozaar) 50 mg PO DAILY [facility] Last Admin: 08/24/18 08:56 Dose: 50 mg Memantine (Namenda) 10 mg PO DAILY [facility] Last Admin: 08/24/18 08:56 Dose: 10 mg Ondansetron HCl (Zofran Inj) 4 mg IV.PUSH Q6H PRN PRN Reason: NAUSEA OR VOMITING Last Admin: 08/24/18 10:04 Dose: 4 mg Pantoprazole Sodium (Protonix Inj) 40 mg IV.PUSH Q12H [facility] Last Admin: 08/24/18 08:57 Dose: 40 mg Desvenlafaxine ( Pristiq) 50 Mg Er Tab 0 each PO DAILY [facility] Sodium Chloride (Ns Flush) 2 ml IV.FLUSH BID [facility] Last Admin: 08/24/18 08:57 Dose: 2 ml Sodium Chloride (Ns Flush) 2 ml IV.FLUSH PRN PRN PRN Reason: FLUSH AFTER USING IV ACCESS <Jenni Hodges - Last Filed: 08/24/18 13:54> Active Medications: Active Medications Acetaminophen (Tylenol) 650 mg PO Q4H PRN PRN Reason: Temp > 100.4 Al Hydroxide/Mg Hydroxide (Milk Of Magnesia Liq) 30 ml PO Q12H PRN PRN Reason: Mild Constipation Atorvastatin Calcium (Lipitor) 40 mg PO QPM [facility] Last Admin: 08/24/18 18:29 Dose: 40 mg Bupropion HCl (Wellbutrin Sr) 150 mg PO DAILY [facility] Last Admin: 08/24/18 08:55 Dose: 150 mg Buspirone HCl (Buspar) 5 mg PO TID [facility] Last Admin: 08/24/18 18:29 Dose: 5 mg Calcium Carbonate (Oscal) 500 mg PO BID [facility] Last Admin: 08/24/18 20:51 Dose: 500 mg Galantamine Hydrobromide (Razadyne) 8 mg PO BID [facility] Last Admin: 08/24/18 20:51 Dose: 8 mg Iron Sucrose 200 mg/ Sodium (Chloride) 110 mls @ 110 mls/hr IV.SIG DAILY [facility] Stop: 08/26/18 09:59 Last Infusion: 08/24/18 17:43 Dose: Infused Sodium Chloride (Ns Inj) 1,000 mls @ 50 mls/hr IV.SIG .Q20H [facility] Last Admin: 08/25/18 05:16 Dose: 50 mls/hr Levothyroxine Sodium (Synthroid) 125 mcg PO DAILY@0600 [facility] Last Admin: 08/25/18 05:18 Dose: 125 mcg Losartan Potassium (Cozaar) 50 mg PO DAILY [facility] Last Admin: 08/25/18 08:21 Dose: Not Given Memantine (Namenda) 10 mg PO DAILY [facility] Last Admin: 08/24/18 08:56 Dose: 10 mg Ondansetron HCl (Zofran Inj) 4 mg IV.PUSH Q6H PRN PRN Reason: NAUSEA OR VOMITING Last Admin: 08/24/18 10:04 Dose: 4 mg Pantoprazole Sodium (Protonix Inj) 40 mg IV.PUSH Q12H [facility] Last Admin: 08/24/18 20:51 Dose: 40 mg Desvenlafaxine ( Pristiq) 50 Mg Er Tab 0 each PO DAILY [facility] Polyethylene Glycol/Electrolytes (Colyte Liq) 4,000 ml PO ONCE ONE Stop: 08/25/18 16:01 Sodium Chloride (Ns Flush) 2 ml IV.FLUSH BID [facility] Last Admin: 08/24/18 20:52 Dose: 2 ml Sodium Chloride (Ns Flush) 2 ml IV.FLUSH PRN PRN PRN Reason: FLUSH AFTER USING IV ACCESS <Bud Perez - Last Filed: 08/25/18 08:55> Allergies Allergy/AdvReac Type Severity Reaction Status Date / Time Sulfa (Sulfonamide Allergy Intermediate UNK Verified 08/23/18 14:02 Antibiotics) tobramycin [From Tobrex] Allergy Drowsiness Verified 08/23/18 14:02 Home Medications Medication Instructions Recorded Confirmed Type bupropion HCl 150 mg PO QAM 08/23/18 08/23/18 History buspirone 5 mg PO TID 08/23/18 08/23/18 History calcium carbonate [Calcium 600] 600 mg PO BID 08/23/18 08/23/18 History cholecalciferol (vitamin D3) 400 unit PO DAILY 08/23/18 08/23/18 History [Vitamin D3] desvenlafaxine 50 mg PO DAILY 08/23/18 08/23/18 History galantamine 16 mg PO QAM 08/23/18 08/23/18 History iron fum,[id number]-yrfmi-Syyxy,C no.9 1 cap PO DAILY 08/23/18 08/23/18 History [Integra Plus] levothyroxine 125 mcg PO DAILY 08/23/18 08/23/18 History magnesium oxide 400 mg PO DAILY 08/23/18 08/23/18 History memantine 10 mg PO DAILY 08/23/18 08/23/18 History simvastatin 80 mg PO QPM 08/23/18 08/23/18 History telmisartan 40 mg PO DAILY 08/23/18 08/23/18 History Exam Vital signs: Vital Signs 08/23/18 15:39 08/23/18 17:01 08/23/18 19:35 Temperature 98.8 F 98.2 F 98.4 F Pulse Rate 60 67 62 Respiratory Rate 17 18 18 Blood Pressure 123/80 138/64 122/57 L Pulse Oximetry 100 97 98 08/23/18 20:00 08/23/18 23:33 08/24/18 00:00 Temperature 98.7 F Pulse Rate 77 61 63 Respiratory Rate 18 Blood Pressure 101/57 L Pulse Oximetry 97 08/24/18 03:11 08/24/18 08:00 08/24/18 12:00 Temperature 98.0 F 98.3 F 99.1 F Pulse Rate 68 80 78 Respiratory Rate 17 18 18 Blood Pressure 112/59 L 111/63 95/54 L Pulse Oximetry 99 97 97 Intake & Output 08/23/18 08/24/18 08/24/18 18:59 06:59 18:59 Intake Total 500 / 500 Balance 500 / 500 Weight 65.771 kg Intake: IV 500 / 500 NS Inj 500 ML @ 1000 mls/hr IV. 500 / 500 SIG BOLUS DOLLY Rx#:[id number] Other: # Voids 1 1 # Emeses 1 Weight On Admission 65.771 kg - Constitutional no acute distress - Routine HEENT Exam Head: Present: normocephalic - Routine Respiratory Exam Present: CTA bilaterally - Routine Cardiovascular Exam Present: RRR - Routine Abdominal Exam Present: soft, normoactive bowel sounds. Absent: tenderness, distended - Routine Skin Exam Present: intact, dry - Routine Neurological Exam Present: alert, oriented X3 <Jenni Hodges - Last Filed: 08/24/18 13:54> Vital signs: Vital Signs 08/24/18 12:00 08/24/18 16:00 08/24/18 19:29 Temperature 99.1 F 98.6 F 99.5 F Pulse Rate 78 76 77 Respiratory Rate 18 18 16 Blood Pressure 95/54 L 100/55 L 96/54 L Pulse Oximetry 97 98 97 08/25/18 00:00 08/25/18 00:30 08/25/18 01:41 Temperature 97.4 F L Pulse Rate 80 70 89 Respiratory Rate 12 Blood Pressure 87/55 L Pulse Oximetry 94 L 08/25/18 03:22 08/25/18 08:00 Temperature 98.4 F 98.2 F Pulse Rate 84 71 Respiratory Rate 16 18 Blood Pressure 98/54 L 99/56 L Pulse Oximetry 94 L 97 Intake & Output 08/24/18 08/25/18 08/25/18 18:59 06:59 18:59 Intake Total 110 / 110 500 / 500 Balance 110 / 110 500 / 500 Intake: IV 110 / 110 500 / 500 NS Inj 500 ML @ 100 mls/hr IV. 500 / 500 CONT .Q5H DOLLY Rx#:[id number] Venofer Inj 200 MG In NS Inj 110 / 110 100 ML @ 110 mls/hr IV.SIG DAILY DOLLY Rx#:[id number] Other: Date of Last Bowel Movement 08/25/18 # Emeses 1 <Bud Perez - Last Filed: 08/25/18 08:55> Results - Labs CBC & Chem 7: 08/24/18 07:41 08/24/18 07:41 Labs: Laboratory Results - last 24 hr 08/23/18 08/24/18 08/24/18 13:22 07:41 07:41 WBC 8.6 RBC 2.78 L Hgb 8.8 L Hct 25.8 L MCV 92.8 MCH 31.5 MCHC 33.9 RDW 14.0 Plt Count 238 MPV 8.6 Neut % (Auto) 72.3 H Lymph % (Auto) 11.5 [place] % (Auto) 14.1 H Eos % (Auto) 1.5 Baso % (Auto) 0.6 Neut # (Auto) 6.2 Lymph # (Auto) 1.0 [place] # (Auto) 1.2 H Eos # (Auto) 0.1 Baso # (Auto) 0.1 WBC Differential . Differential Comment Auto diff final Sodium 142 Potassium 4.3 Chloride 109 H Carbon Dioxide 25.8 Anion Gap 7 BUN 29 H Creatinine 1.29 H Estimated GFR 39 L Random Glucose 85 Calcium 9.0 Total Bilirubin 0.4 AST 16 ALT 16 Alkaline Phosphatase 25 L Total Protein 6.6 Albumin 3.3 L Urine Color Yellow Urine Clarity Clear Urine pH 5.0 Ur Specific [place] 1.015 Urine Protein Negative Urine Glucose (UA) Negative Urine Ketones Negative Urine Occult Blood Negative Urine Nitrate Negative Urine Bilirubin Negative Urine Urobilinogen Less than 2 Ur Leukocyte Esterase Negative Urine RBC 1 Urine WBC 2 Urine Mucus Few H Micro UA Comment Culture not ind Ur Microscopic Review Not Reportable Urine Culture Comments Culture not ind <Jenni Hodges - Last Filed: 08/24/18 13:54> - Labs CBC & Chem 7: 08/25/18 07:45 08/24/18 07:41 Labs: Laboratory Results - last 24 hr 08/24/18 08/25/18 07:41 07:45 WBC 8.7 RBC 2.49 L Hgb 7.8 L Hct 23.2 L MCV 93.2 MCH 31.3 MCHC 33.6 RDW 14.0 Plt Count 210 MPV 8.5 Neut % (Auto) 69.3 Lymph % (Auto) 12.4 [place] % (Auto) 17.4 H Eos % (Auto) 0.5 Baso % (Auto) 0.4 Neut # (Auto) 6.0 Lymph # (Auto) 1.1 [place] # (Auto) 1.5 H Eos # (Auto) 0.0 Baso # (Auto) 0.0 WBC Differential . Differential Comment Auto diff final Iron 18 L TIBC 297 % Saturation 6.1 L Ferritin 67 <Bud Perez - Last Filed: 08/25/18 08:55> Assessment and Plan - Plan - Anemia, hx of gastric ulcer in 2017, emesis, weakness- hgb today is 8.9 , seems to be worsening, she is on iron supplement, endorses some dark stools Patient was scheduled to have EGD/colonoscopy on 08/28/[address] Pelletier. - HTN, Hyperlipidemia per attending Plan: - clears tomorrow - EGD/colonoscopy on Sunday - Goytely tomorrow - Monitor labs - Cont. PPI - Supportive care - Pt seen and examined by Dr. Perez and myself and this note is written on his behalf. <Jenni Hodges - Last Filed: 08/24/18 13:54> - Attending Attestation I have seen and examined the patient and reviewed the relevant portions of the chart and discussed the patient's current complaints, results and findings with the LONG TERM CARE SOCIAL WORKER. We have reviewed the therapeutic plan for the patient. I agree with the above assessment and recommendations as documented above. <Bud Perez - Last Filed: 08/25/18 08:55>
[2018-08-24 15:02] LABS: % Iron Saturation 6.1 % (20-50)
[2018-08-24] MEDS: Iron Sucrose Complex Inj 200 MG in Sodium Chlor 0.9% Inj 100 ML IV.SIG SCH (16:43)
[2018-08-25] MEDS ORDERED: Sodium Chlor 0.9% Inj 500 ML IV.CONT SCH (01:00)
[2018-08-25] MEDS: Levothyroxine 125 MCG Tablet PO SCH (05:18)
[2018-08-25] MEDS ORDERED: Sod Chloride 0.9% Inj 1,000 ML IV.SIG SCH (06:00)
[2018-08-25 08:25] LABS: Baso % (Auto) 0.4 % (0.0-2.0); Eos % (Auto) 0.5 % (0.0-4.0); Hematocrit 23.2 % (35.0-46.0); Hemoglobin 7.8 gm/dL (11.6-15.3); Lymph # (Auto) 1.1 th/mm3 (1.0-4.8); Lymph % (Auto) 12.4 % (9.0-44.0); Mean Corpuscular HGB Conc 33.6 % (32.0-36.0); Mean Corpuscular Hemoglobin 31.3 pg (27.0-34.0); Mean Corpuscular Volume 93.2 fL (80.0-100.0); Mean Platelet Volume 8.5 fL (7.0-11.0); Mono # (Auto) 1.5 th/mm3 (0.0-0.9); Mono % (Auto) 17.4 % (0.0-8.0); Neut % (Auto) 69.3 % (16.0-70.0); Platelet Count 210 th/mm3 (150-450); Red Blood Count 2.49 mil/mm3 (4.00-5.30); White Blood Count 8.7 th/mm3 (4.0-11.0)
[2018-08-25] MEDS: Calcium Carbonate 500 MG Tablet PO SCH ×2 (09:11→20:53)
[2018-08-25] MEDS: Pantoprazole Inj 40 MG Vial IV.PUSH SCH ×2 (09:11→20:53)
[2018-08-25] MEDS: buPROPion 150 MG 12 HR Tablet PO SCH (09:12)
--- NOTE | 2018-08-25 09:19 | P.PNGI ---
Subjective Interval history: [place] [facility] [place] Denies nausea, vomiting or bleeding. <Jenni Hodges - Last Filed: 08/25/18 09:16> Physical Exam Vital signs: Vital Signs 08/24/18 12:00 08/24/18 16:00 08/24/18 19:29 Temperature 99.1 F 98.6 F 99.5 F Pulse Rate 78 76 77 Respiratory Rate 18 18 16 Blood Pressure 95/54 L 100/55 L 96/54 L Pulse Oximetry 97 98 97 08/25/18 00:00 08/25/18 00:30 08/25/18 01:41 Temperature 97.4 F L Pulse Rate 80 70 89 Respiratory Rate 12 Blood Pressure 87/55 L Pulse Oximetry 94 L 08/25/18 03:22 08/25/18 08:00 Temperature 98.4 F 98.2 F Pulse Rate 84 71 Respiratory Rate 16 18 Blood Pressure 98/54 L 99/56 L Pulse Oximetry 94 L 97 Intake & Output 08/24/18 08/25/18 08/25/18 18:59 06:59 18:59 Intake Total 110 / 110 500 / 500 Balance 110 / 110 500 / 500 Intake: IV 110 / 110 500 / 500 NS Inj 500 ML @ 100 mls/hr IV. 500 / 500 CONT .Q5H DOLLY Rx#:[id number] Venofer Inj 200 MG In NS Inj 110 / 110 100 ML @ 110 mls/hr IV.SIG DAILY DOLLY Rx#:[id number] Other: Date of Last Bowel Movement 08/25/18 # Emeses 1 - Constitutional no acute distress - Routine HEENT Exam Head: Present: normocephalic - Routine Respiratory Exam Present: CTA bilaterally - Routine Cardiovascular Exam Present: RRR - Routine Abdominal Exam Present: soft, normoactive bowel sounds. Absent: tenderness, distended - Routine Extremities Exam Absent: cyanosis, edema - Routine Skin Exam Present: intact, dry - Routine Neurological Exam Present: alert, oriented X3 - Routine Psychiatric Exam Present: normal affect, normal thought process <Jenni Hodges - Last Filed: 08/25/18 09:16> Vital signs: Vital Signs 08/24/18 12:00 08/24/18 16:00 08/24/18 19:29 Temperature 99.1 F 98.6 F 99.5 F Pulse Rate 78 76 77 Respiratory Rate 18 18 16 Blood Pressure 95/54 L 100/55 L 96/54 L Pulse Oximetry 97 98 97 08/25/18 00:00 08/25/18 00:30 08/25/18 01:41 Temperature 97.4 F L Pulse Rate 80 70 89 Respiratory Rate 12 Blood Pressure 87/55 L Pulse Oximetry 94 L 08/25/18 03:22 08/25/18 08:00 Temperature 98.4 F 98.2 F Pulse Rate 84 71 Respiratory Rate 16 18 Blood Pressure 98/54 L 99/56 L Pulse Oximetry 94 L 97 Intake & Output 08/24/18 08/25/18 08/25/18 18:59 06:59 18:59 Intake Total 110 / 110 500 / 500 Balance 110 / 110 500 / 500 Intake: IV 110 / 110 500 / 500 NS Inj 500 ML @ 100 mls/hr IV. 500 / 500 CONT .Q5H DOLLY Rx#:[id number] Venofer Inj 200 MG In NS Inj 110 / 110 100 ML @ 110 mls/hr IV.SIG DAILY DOLLY Rx#:[id number] Other: Date of Last Bowel Movement 08/25/18 # Emeses 1 <Bud Perez - Last Filed: 08/25/18 11:41> Results - Labs CBC & Chem 7: 08/25/18 07:45 08/24/18 07:41 Laboratory Results - last 24 hr 08/24/18 08/25/18 07:41 07:45 WBC 8.7 RBC 2.49 L Hgb 7.8 L Hct 23.2 L MCV 93.2 MCH 31.3 MCHC 33.6 RDW 14.0 Plt Count 210 MPV 8.5 Neut % (Auto) 69.3 Lymph % (Auto) 12.4 [place] % (Auto) 17.4 H Eos % (Auto) 0.5 Baso % (Auto) 0.4 Neut # (Auto) 6.0 Lymph # (Auto) 1.1 [place] # (Auto) 1.5 H Eos # (Auto) 0.0 Baso # (Auto) 0.0 WBC Differential . Differential Comment Auto diff final Iron 18 L TIBC 297 % Saturation 6.1 L Ferritin 67 <Jenni Hodges - Last Filed: 08/25/18 09:16> - Labs CBC & Chem 7: 08/25/18 07:45 08/24/18 07:41 Laboratory Results - last 24 hr 08/24/18 08/25/18 07:41 07:45 WBC 8.7 RBC 2.49 L Hgb 7.8 L Hct 23.2 L MCV 93.2 MCH 31.3 MCHC 33.6 RDW 14.0 Plt Count 210 MPV 8.5 Neut % (Auto) 69.3 Lymph % (Auto) 12.4 [place] % (Auto) 17.4 H Eos % (Auto) 0.5 Baso % (Auto) 0.4 Neut # (Auto) 6.0 Lymph # (Auto) 1.1 [place] # (Auto) 1.5 H Eos # (Auto) 0.0 Baso # (Auto) 0.0 WBC Differential . Differential Comment Auto diff final Iron 18 L TIBC 297 % Saturation 6.1 L Ferritin 67 <Bud Perez - Last Filed: 08/25/18 11:41> Assessment and Plan - Plan - Anemia, hx of gastric ulcer in 2017, emesis, weakness- hgb today is 7.8 drop from 8.8 she is on iron supplement at home, endorses some dark stools - HTN, Hyperlipidemia per attending Plan: - clears - EGD/colonoscopy on Sunday - Goytely today - NPO mn - Monitor labs - Cont. PPI - Supportive care - Pt seen and examined by Dr. Perez and myself and this note is written on his behalf. <Jenni Hodges - Last Filed: 08/25/18 09:16> - Attending Attestation I have seen and examined the patient and reviewed the relevant portions of the chart and discussed the patient's current complaints, results and findings with the DRY WALL SPRAYER. We have reviewed the therapeutic plan for the patient. I agree with the above assessment and recommendations as documented above. <Bud Perez - Last Filed: 08/25/18 11:41>
--- NOTE | 2018-08-25 09:32 | P.PNIM ---
Subjective Interval history: No vomiting yesterday afternoon or evening Pts BP has been running low and pt reports some dizziness when standing to get to the bedside commode She was started on IVF overnight Physical Exam Vital signs: Last Vital Signs Temp 98.2 F 08/25/18 08:00 Pulse 71 08/25/18 08:00 Resp 18 08/25/18 08:00 BP 99/56 L 08/25/18 08:00 Pulse Ox 97 08/25/18 08:00 Narrative: GENERAL: NAD, AAOx3, memory difficulties CARDIO: Regular rate and rhythm. RESP: Clear to auscultation. Breath sounds equal bilaterally. ABD: +BS, soft, non-tender, nondistended. EXT: Extremities without clubbing, cyanosis, or edema. No obvious deformities. Results Labs CBC & Chem 7: 08/25/18 07:45 08/24/18 07:41 Assessment and Plan Assessment (1) Symptomatic anemia: Code(s): D64.9 - Anemia, unspecified Status: Chronic (2) HTN (hypertension): Code(s): I10 - Essential (primary) hypertension Status: Chronic (3) Hypothyroidism: Code(s): E03.9 - Hypothyroidism, unspecified Status: Chronic (4) Hyperlipidemia: Code(s): E78.5 - Hyperlipidemia, unspecified Status: Chronic Plan Symptomatic anemia Hx of PUD - Pt is an 83 y/o female with anemia, hx of gastric ulcer in 2017, CKD, stage 3 , memory deficits, HTN, hyperlipidemia, and hypothyroidism. She presented to the ED at [facility] [place]/23/18 with complaints of increased weakness and vomiting. Pt has been having issues with anemia since 04/2018 when her Hgb went from 11.5 to 10.9. In review of outpt labs her H/H has been slowly decreasing since then and on most recent outpt labs her Hgb was 8.5 on 08/13/18. She has a hx of gastric ulcer in 2016. Pt was seen by [facility] as an outpt and is reportedly set up for an outpt EGD/colonoscopy on 08/28/[address] Pelletier. Pt presented to the ED with complaints of generalized weakness, and she had an episode of vomiting this morning that was reportedly brown. She reported dark tarry stools as well but this has been going on for some time, and feels that its been since she started on iron supplements. - Labs in the ED noted Hgb 8.9. Repeat labs on 08/24 with stable Hgb 8.8 - Cont. Protonix 40mg IV BID - Zofran PRN - Encourage oral intake - Re-evaluated the pt in the afternoon on 08/24 and she had vomiting with breakfast and is feeling quite weak. - Discussed with the pt and the family at bedside that with the pts vomiting and weakness it may be difficult for her to tolerate the prep for the colonoscopy on Sunday at home for the scheduled GI procedures on Sunday. They agreed and requested GI consultation. - Appreciate consult from GI. Pt is planned for EGD/colonoscopy on Sunday - Cont. Antiemetics PRN - Iron panel with serum Fe 18, TIBC 297, %Sat 6.1. IV Venofer ordered on 08/24 - PT evaluation - Repeat labs this AM with Hgb 7.8. With pt being symptomatic with low BP and some dizziness we will plan for transfusion with 2 units of PRBCs and stop the IVF. HTN - Hold home meds as BP is low - Pt started on IVF on 08/25 - Monitor Hyperlipidemia - Cont. home meds Hypothyroidism - Cont. home meds Attending Attestation Patient examined. Assessment and plan formulated with Chasity Albert PA-C. Joanne agree with the above. Progress Note: Quality VTE Deep Vein Thrombosis/Pulmonary Embolism Present on Admission: No
[2018-08-25] MEDS: Iron Sucrose Complex Inj 200 MG in Sodium Chlor 0.9% Inj 100 ML IV.SIG SCH (10:45)
[2018-08-25] MEDS ORDERED: PEG 3350/E-Lyte Soln 4000 ML Bottle PO ONE (16:00)
[2018-08-26 06:16] LABS: Baso # (Auto) 0.1 th/mm3 (0.0-0.2); Baso % (Auto) 0.7 % (0.0-2.0); Eos # (Auto) 0.1 th/mm3 (0.0-0.4); Hemoglobin 10.5 gm/dL (11.6-15.3); Lymph # (Auto) 1.3 th/mm3 (1.0-4.8); Lymph % (Auto) 15.3 % (9.0-44.0); Mean Corpuscular Hemoglobin 32.3 pg (27.0-34.0); Mean Corpuscular Volume 92.4 fL (80.0-100.0); Mono # (Auto) 1.5 th/mm3 (0.0-0.9); Mono % (Auto) 17.8 % (0.0-8.0); Neut # (Auto) 5.6 th/mm3 (1.8-7.7); Neut % (Auto) 65.2 % (16.0-70.0); Platelet Count 194 th/mm3 (150-450); Red Blood Count 3.24 mil/mm3 (4.00-5.30); White Blood Count 8.6 th/mm3 (4.0-11.0)
[2018-08-26] MEDS: Levothyroxine 125 MCG Tablet PO SCH (06:24)
--- NOTE | 2018-08-26 08:36 | P.PNIM ---
Subjective Interval history: Pt had one episode of vomiting last night with the prep She is currently NPO for the EGD/colonoscopy today No new complaints Physical Exam Vital signs: Last Vital Signs Temp 97.9 F 08/26/18 08:00 Pulse 68 08/26/18 08:00 Resp 16 08/26/18 08:00 BP 156/73 H 08/26/18 08:00 Pulse Ox 96 08/26/18 08:00 Narrative: GENERAL: NAD, AAOx3, memory difficulties CARDIO: Regular rate and rhythm. RESP: Clear to auscultation. Breath sounds equal bilaterally. ABD: +BS, soft, non-tender, nondistended. EXT: Extremities without clubbing, cyanosis, or edema. No obvious deformities. Results Labs CBC & Chem 7: 08/29/18 03:39 08/29/18 03:39 Assessment and Plan Assessment (1) Symptomatic anemia: Code(s): D64.9 - Anemia, unspecified Status: Chronic (2) HTN (hypertension): Code(s): I10 - Essential (primary) hypertension Status: Chronic (3) Hypothyroidism: Code(s): E03.9 - Hypothyroidism, unspecified Status: Chronic (4) Hyperlipidemia: Code(s): E78.5 - Hyperlipidemia, unspecified Status: Chronic Plan Symptomatic anemia Hx of PUD - Pt is an 83 y/o female with anemia, hx of gastric ulcer in 2017, CKD, stage 3 , memory deficits, HTN, hyperlipidemia, and hypothyroidism. She presented to the ED at [facility] [place] on 08/23/18 with complaints of increased weakness and vomiting. Pt has been having issues with anemia since 04/2018 when her Hgb went from 11.5 to 10.9. In review of outpt labs her H/H has been slowly decreasing since then and on most recent outpt labs her Hgb was 8.5 on 08/13/18. She has a hx of gastric ulcer in 2017. Pt was seen by [facility] as an outpt and is reportedly set up for an outpt EGD/colonoscopy on 08/28/[address] Pelletier. Pt presented to the ED with complaints of generalized weakness, and she had an episode of vomiting this morning that was reportedly brown. She reported dark tarry stools as well but this has been going on for some time, and feels that its been since she started on iron supplements. - Labs in the ED noted Hgb 8.9. Repeat labs on 08/24 with stable Hgb 8.8 - Cont. Protonix 40mg IV BID - Zofran PRN - Encourage oral intake - Re-evaluated the pt in the afternoon on 08/24 and she had vomiting with breakfast and is feeling quite weak. - Discussed with the pt and the family at bedside that with the pts vomiting and weakness it may be difficult for her to tolerate the prep for the colonoscopy on Sunday at home for the scheduled GI procedures on Sunday. They agreed and requested GI consultation. - Appreciate consult from GI. - Cont. Antiemetics PRN - Iron panel with serum Fe 18, TIBC 297, %Sat 6.1. Pt was given IV Venofer on 08/24 and 08/25 - Repeat labs this AM with Hgb 7.8. With pt being symptomatic with low BP and some dizziness she was transfused with 2 units of PRBCs on 08/25 - Pt is planned for EGD/colonoscopy today - BP has improved. HTN - Pt was given IVF on 08/25 and BP improved after 2 units PRBCs - Monitor Hyperlipidemia - Cont. home meds Hypothyroidism - Cont. home meds Attending Attestation The exam, history, and the medical decision-making described in the above note were completed with the assistance of the mid-level provider. I reviewed and agree with the findings presented. I attest that I had a [id number] encounter with the patient on the same day, and personally performed and documented my assessment and findings in the medical record. Patient examined. Assessment and plan formulated with Chasity Albert PA-C. I agree with the above. Progress Note: Quality VTE Deep Vein Thrombosis/Pulmonary Embolism Present on Admission: No
[2018-08-26] MEDS: buPROPion 150 MG 12 HR Tablet PO SCH (09:14)
[2018-08-26] MEDS: Pantoprazole Inj 40 MG Vial IV.PUSH SCH ×2 (09:15→22:24)
[2018-08-26] MEDS: Calcium Carbonate 500 MG Tablet PO SCH ×2 (09:15→22:24)
[2018-08-26] MEDS ORDERED: Lidocaine PF 1% Inj 5 ML Syringe OTHER ONE (09:59)
--- NOTE | 2018-08-26 10:43 | GIPROC ---
[facility] [address] [facility]. [facility], [address] COLONOSCOPY PROCEDURE REPORT EXAM DATE: 08/26/2018 PATIENT NAME: Michelle Walker MR #: [id number] BIRTHDATE: 1935 ENDOSCOPIST: Rodolfo Lopez MD ORDER #: [id number] BACK HOE OPERATOR: Farhan Hager Pena, Gabriela, and Gilda Morgan STATUS: inpatient INDICATIONS: The patient is a 83 yr old female here for a colonoscopy due to iron deficiency anemia and heme-positive stool PROCEDURE PERFORMED: Colonoscopy, diagnostic Colonoscopy with biopsy MEDICATIONS: Per Anesthesia and None. PREP QUALITY: poor ESTIMATED BLOOD LOSS: None CONSENT: The patient understands the risks and benefits of the procedure and understands that these risks include, but are not limited to: sedation, allergic reaction, infection, perforation and/or bleeding. Alternative means of evaluation and treatment include, among others: physical exam, x-rays, and/or surgical intervention. The patient elects to proceed with this endoscopic procedure. medical equipment was checked for proper function. Hand hygiene and appropriate measures for infection prevention was taken. After the risks, benefits and alternatives of the procedure were thoroughly explained, Informed consent was verified, confirmed and timeout was successfully executed by the treatment team. A digital exam revealed no abnormalities of the rectum The EG-[id number] (Std Gastro) endoscope was introduced through the anus and advanced to the cecum, which was identified by both the appendix and ileocecal valve. The instrument was then slowly withdrawn as the colon was fully examined. COLON FINDINGS: A half circumferential ulcerated, fungating and polypoid shaped mass with friable surfaces was found at the cecum. Multiple biopsies were performed. Moderate diverticulosis was noted in the sigmoid colon and descending colon. Retroflexion was not performed The scope was then completely withdrawn from the patient and the procedure terminated. PROCEDURE WITHDRAWAL TIME:8minutes ADVERSE EVENTS: There were no complications. IMPRESSIONS: 1. Half circumferential mass was found at the cecum; multiple biopsies were performed . 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 Moderate diverticulosis was noted in the sigmoid colon and descending colon 3. Retroflexion was not performed 4. Revealed no abnormalities of the rectum RECOMMENDATIONS: Await biopsy results. Biopsy results will not be ready for 7-10 days. If you don't hear from us in two weeks, call our office for results. RECALL: Return 1 year Colonoscopy Rodolfo Lopez MD eSigned: Rodolfo Lopez MD 08/26/2018 10:43 AM cc: PATIENT NAME: Michelle Walker MR#: [id number]
--- NOTE | 2018-08-26 10:46 | GIPROC ---
[facility] [address] [facility]. [facility], [address] EGD PROCEDURE REPORT EXAM DATE: 08/26/2018 PATIENT NAME: Michelle Walker MR #: [id number] BIRTHDATE: 1935 ATTENDING: Rodolfo Lopez MD ORDER #: [id number] PANTRY ATTENDANT: Farhan Hager Pena, Gabriela, and Gilda Morgan STATUS: inpatient INDICATIONS: The patient is a 83 yr old female here for an EGD due to iron deficiency anemia PROCEDURE PERFORMED: EGD, diagnostic MEDICATIONS: Per Anesthesia and None. TOPICAL ANESTHETIC: none CONSENT: The patient understands the risks and benefits of the procedure and understands that these risks include, but are not limited to: sedation, allergic reaction, infection, perforation and/or bleeding. Alternative means of evaluation and treatment include, among others: physical exam, x-rays, and/or surgical intervention. The patient elects to proceed with this endoscopic procedure. medical equipment was checked for proper function. Hand hygiene and appropriate measures for infection prevention was taken. After the risks, benefits and alternatives of the procedure were thoroughly explained, Informed consent was verified, confirmed and timeout was successfully executed by the treatment team. The patient was anesthetized with topical anesthesia and the Pentax EG-2990i endoscope was introduced through the mouth and advanced to the second portion of the duodenum. Retroflexed views revealed a hiatal hernia The gastroscope was then slowly withdrawn and removed. ESOPHAGUS: There was LA Class A esophagitis noted. STOMACH: The mucosa of the stomach appeared normal. DUODENUM: The duodenal mucosa appeared normal in the entire duodenum. ADVERSE EVENTS: There were no complications. IMPRESSIONS: 1. There was LA Class A esophagitis noted 2. The mucosa of the stomach appeared normal 3. Normal duodenal mucosa in the entire duodenum 4. Retroflexed views revealed a hiatal hernia RECOMMENDATIONS: Colonoscopy PATIENT CONDITION: stable DISPOSITION: Inpatient REPEAT EXAM: Return as needed for EGD Rodolfo Lopez MD eSigned: Rodolfo Lopez MD 08/26/2018 10:46 AM cc: PATIENT NAME: Michelle Walker MR#: [id number]
[2018-08-26] MEDS ORDERED: Diatrizoate Meglum/Diatrizoate Sod Liq 9 ML UDC PO ONE (11:30)
--- NOTE | 2018-08-26 15:05 | CT ---
EXAM DATE: 08/26/2018 2:01 PM EST AGE/SEX: 83 years / Female INDICATIONS: Cecal mass. CLINICAL DATA: This is the patient's initial encounter. Patient reports that signs and symptoms have been present for 1 day and indicates a pain score of 0/10. MEDICAL/SURGICAL HISTORY: Hypertension. None. ORAL CONTRAST: Prescribed oral contrast ingested. RADIATION DOSE: 6.97 CTDI (mGy) COMPARISON: No prior exams available for comparison. TECHNIQUE: Multiple contiguous axial images were obtained through the abdomen and pelvis following b olus infusion of 50 ml Visipaque 320 (iodixanol) nonionic water-soluble contrast as a single exam d ose. Prescribed oral contrast ingested. Using automated exposure control and adjustment of the mA an d/or kV according to patient size, radiation dose was kept as low as reasonably achievable to obtain optimal diagnostic quality images. DICOM format image data is available electronically for review an d comparison. FINDINGS: Lower Lungs: Some atelectatic changes posteriorly in the right lung base. Pleural-based nodules in th e same general vicinity are also likely related to the atelectatic changes. Left base is clear. There is some calcification of the mitral valve annulus. Small to moderate moderate-sized hiatal hernia Liver: Multiple hypodensities in the left and right hepatic lobes are most characteristic of cysts or possible hemangiomas. No intra or extrahepatic biliary duct dilatation. Gallbladder is hydropic. Spleen: Homogeneous density without enlargement. Pancreas: Unremarkable without mass or calcification. Kidneys: Bilateral renal cortical cysts. There appears to be some mural calcification in the distal ureter and the left ureter is somewhat dilated but I do not see an obstructing stone. No hydronephros is. Adrenal Glands: Unremarkable. Aorta: The aorta and proximal iliac vessels are grossly unremarkable without aneurysmal dilation. Bowel/Mesentery: Some diverticular disease in the sigmoid colon without diverticulitis Abdominal Wall: Intact. Retroperitoneum: No evidence of adenopathy in the retrocrural, para-aortic, or deep pelvic regions. Bladder: Contours are smooth. Reproductive Organs: Patient is status post hysterectomy. Inguinal: Bilateral inguinal hernias which only contains fat. Largest on the left measures 2.2 cm in diameter. Bony Structures: Old compression fracture and kyphoplasty at L1. Degenerative disc disease in the lo wer lumbar spine and lumbosacral junction. CONCLUSION: 1. Multiple hepatic hypodensities are overtly benign and most likely represent cysts or hemangiomas. 2. Right basilar pleural nodules and regional pleural thickening are probably atelectatic. 3. Bilateral renal cortical cysts. 4. Hydropic gallbladder. Nonspecific finding and can be seen in prolonged fasting. 5. Old kyphoplasty at L1. No acute osseous injury Electronically signed by: Ayaz Ochoa MD Board Certified Radiologist 08/26/2018 3:03 PM EST
[2018-08-26] MEDS: Sod Chloride 0.9% Inj 1,000 ML IV.CONT SCH (22:19)
[2018-08-27] MEDS ORDERED: Chlorhexidine Gluconate 2% 1 Pack (2 Cloths) TOPICAL ONE (02:27)
[2018-08-27] MEDS ORDERED: Sodium Chlor 0.9% Inj 500 ML IV.SIG SCH (03:00)
[2018-08-27] MEDS: Levothyroxine 125 MCG Tablet PO SCH (05:04)
--- NOTE | 2018-08-27 09:13 | P.PNIM ---
Subjective Interval history: No new complaints today Pt getting ready to go down to OR Physical Exam Vital signs: Last Vital Signs Temp 98.0 F 08/27/18 04:00 Pulse 74 08/27/18 04:00 Resp 18 08/27/18 04:00 BP 145/82 H 08/27/18 04:00 Pulse Ox 94 L 08/27/18 04:00 Narrative: GENERAL: NAD, AAOx3, memory difficulties CARDIO: Regular rate and rhythm. RESP: Clear to auscultation. Breath sounds equal bilaterally. ABD: +BS, soft, non-tender, nondistended. EXT: Extremities without clubbing, cyanosis, or edema. No obvious deformities. Results Labs CBC & Chem 7: 08/29/18 03:39 08/29/18 03:39 Assessment and Plan Assessment (1) Symptomatic anemia: Code(s): D64.9 - Anemia, unspecified Status: Chronic (2) HTN (hypertension): Code(s): I10 - Essential (primary) hypertension Status: Chronic (3) Hypothyroidism: Code(s): E03.9 - Hypothyroidism, unspecified Status: Chronic (4) Hyperlipidemia: Code(s): E78.5 - Hyperlipidemia, unspecified Status: Chronic Plan Symptomatic anemia Hx of PUD - Pt is an 83 y/o female with anemia, hx of gastric ulcer in 2017, CKD, stage 3 , memory deficits, HTN, hyperlipidemia, and hypothyroidism. [place] [facility] [place] with complaints of increased weakness and vomiting. Pt has been having issues with anemia since 04/2018 when her Hgb went from 11.5 to 10.9. In review of outpt labs her H/H has been slowly decreasing since then and on most recent outpt labs her Hgb was 8.5 on 08/13/18. She has a hx of gastric ulcer in 2016. Pt was seen by [facility] as an outpt and is reportedly set up for an outpt EGD/colonoscopy on 08/28/[address] Pelletier. Pt presented to the ED with complaints of generalized weakness, and she had an episode of vomiting this morning that was reportedly brown. She reported dark tarry stools as well but this has been going on for some time, and feels that its been since she started on iron supplements. - Labs in the ED noted Hgb 8.9. Repeat labs on 08/24 with stable Hgb 8.8 - Cont. Protonix 40mg IV BID - Zofran PRN - Encourage oral intake - Re-evaluated the pt in the afternoon on 08/24 and she had vomiting with breakfast and is feeling quite weak. - Discussed with the pt and the family at bedside that with the pts vomiting and weakness it may be difficult for her to tolerate the prep for the colonoscopy on Sunday at home for the scheduled GI procedures on Sunday. They agreed and requested GI consultation. - Appreciate consult from GI. - Cont. Antiemetics PRN - Iron panel with serum Fe 18, TIBC 297, %Sat 6.1. Pt was given IV Venofer on 08/24 and 08/25 - Repeat labs this AM with Hgb 7.8. With pt being symptomatic with low BP and some dizziness she was transfused with 2 units of PRBCs on 08/25 - Pt underwent evaluation with EGD/colonoscopy 08/26/18 --> Esophagitis, HH, moderate diverticulosis in the sigmoid colon and descending colon, and half circumferential mass was found at the cecum; multiple biopsies were performed. [place] that this is likely Ca Colon - pathology is pending. - CRS was consulted by GI on 08/26. Pt was seen by Dr. Petty and is planned for surgical intervention today. HTN - Pt was given IVF on 08/25 and BP improved after 2 units PRBCs - Monitor Hyperlipidemia - Cont. home meds Hypothyroidism - Cont. home meds Attending Attestation The exam, history, and the medical decision-making described in the above note were completed with the assistance of the mid-level provider. I reviewed and agree with the findings presented. I attest that I had a [id number] encounter with the patient on the same day, and personally performed and documented my assessment and findings in the medical record. Patient examined. Assessment and plan formulated with Chasity Albert PA-C. I agree with the above. Progress Note: Quality VTE Deep Vein Thrombosis/Pulmonary Embolism Present on Admission: No
--- NOTE | 2018-08-27 09:27 | XR ---
EXAM DATE: 08/27/2018 9:14 AM EST AGE/SEX: 83 years / Female INDICATIONS: . Cough. CLINICAL DATA: This is the patient's subsequent encounter. Patient reports that signs and symptoms h ave been present for 3 days and indicates a pain score of 0/10. MEDICAL/SURGICAL HISTORY: Hypertension. None. COMPARISON: No prior exams available for comparison. FINDINGS: The lungs are clear without infiltrate, nodule, or mass. There is no appreciable pleural effusion fo r technique. Heart and mediastinum are unremarkable. There is anterior wedging and compression defor mity of L1 of uncertain age, however there appears to be some degree of erosive changes towards the a nterior portion of this vertebrae sclerotic changes as well. CONCLUSION: No acute cardiopulmonary disease. There are mixed areas of sclerosis and erosive changes involving L1 vertebrae which is also compressed not adequately characterized of uncertain age. Electronically signed by: Alex Lombardi MD Board Certified Radiologist 08/27/2018 9:26 AM EST
[2018-08-27] MEDS: Pantoprazole Inj 40 MG Vial IV.PUSH SCH (09:33)
[2018-08-27] MEDS: Calcium Carbonate 500 MG Tablet PO SCH (09:34)
[2018-08-27] MEDS: buPROPion 150 MG 12 HR Tablet PO SCH (09:34)
[2018-08-27] MEDS: Sod Chloride 0.9% Inj 1,000 ML IV.CONT SCH (09:36)
--- NOTE | 2018-08-27 11:58 | P.PNGI ---
Subjective Interval history: Patient is laying in bed awake and alert No complaint of abdominal pain She was asking for her surgical time, colorectal surgery was consulted Physical Exam Vital signs: Vital Signs 08/26/18 12:12 08/26/18 16:10 08/26/18 17:20 Temperature 98.1 F 98 F Pulse Rate 68 69 67 Respiratory Rate 16 16 17 Blood Pressure 126/77 138/73 140/67 Pulse Oximetry 94 L 94 L 98 08/26/18 20:00 08/27/18 00:00 08/27/18 04:00 Temperature 97.5 F L 98.5 F 98.0 F Pulse Rate 81 72 74 Respiratory Rate 18 18 18 Blood Pressure 162/70 H 156/81 H 145/82 H Pulse Oximetry 97 95 94 L 08/27/18 08:00 Temperature 99.0 F Pulse Rate 72 Respiratory Rate 19 Blood Pressure 152/93 H Pulse Oximetry 95 Intake & Output 08/26/18 08/27/18 08/27/18 18:59 06:59 18:59 Intake Total 300 / 300 320 / 320 728 / 728 Balance 300 / 300 320 / 320 728 / 728 Weight 84.6 kg Intake: IV 200 / 200 728 / 728 NS Inj 1,000 ML @ 84 mls/hr IV. 728 / 728 CONT .[id number] DOLLY Rx#:[id number] Flagyl 500 MG Inj 100 ML @ 200 200 / 200 mls/hr IV.SIG Q8H DOLLY Rx#: [id number] Oral 120 / 120 Anesthesia Amount 300 / 300 Other: # Voids 2 Date of Last Bowel Movement 08/26/18 08/27/18 - Constitutional no acute distress - Routine HEENT Exam Head: Present: normocephalic, atraumatic - Routine Neck Exam Present: supple - Routine Respiratory Exam Present: CTA bilaterally - Routine Cardiovascular Exam Present: RRR, S1, S2 - Routine Abdominal Exam Present: soft, normoactive bowel sounds. Absent: tenderness, distended - Routine Skin Exam Present: intact - Routine Neurological Exam Present: alert, oriented X3 - Routine Psychiatric Exam Present: normal affect, cooperative Results - Labs CBC & Chem 7: 08/26/18 04:35 08/24/18 07:41 Laboratory Results - last 24 hr 08/27/18 04:02 Carcinoembryonic Ag 4.6 - Imaging Impressions Abdomen/Pelvis CT 08/26/18 00:00 CONCLUSION: 1. Multiple hepatic hypodensities are overtly benign and most likely represent cysts or hemangiomas. 2. Right basilar pleural nodules and regional pleural thickening are probably atelectatic. 3. Bilateral renal cortical cysts. 4. Hydropic gallbladder. Nonspecific finding and can be seen in prolonged fasting. 5. Old kyphoplasty at L1. No acute osseous injury Chest X-Ray 08/27/18 00:00 CONCLUSION: No acute cardiopulmonary disease. There are mixed areas of sclerosis and erosive changes involving L1 vertebrae which is also compressed not adequately characterized of uncertain age. Assessment and Plan (1) Abnormal colonoscopy Status: Acute Code(s): R93.3 - Abnormal findings on diagnostic imaging of other parts of digestive tract (2) GI bleed Status: Acute Code(s): K92.2 - Gastrointestinal hemorrhage, unspecified (3) Iron deficiency anemia Status: Acute Code(s): D50.9 - Iron deficiency anemia, unspecified - Plan - Anemia, hx of gastric ulcer in 2017, emesis, weakness- hgb today is 7.8 drop from 8.8 she is on iron supplement at home, endorses some dark stools - HTN, Hyperlipidemia per attending 08/27/2018 Assessment Iron deficiency anemia Status post EGD colonoscopy EGD 08/26/2018 showed LA Class A esophagitis noted. The mucosa of the stomach appeared normal. Normal duodenal mucosa in the entire duodenum. Retroflexed views revealed a hiatal hernia. Colonoscopy 08/26/2018 showed antonio circumferential mass was found at the cecum; multiple biopsies were performed . 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 Retroflexion was not performed. Revealed no abnormalities of the rectum Plan: -N.p.o. -Colorectal surgery following -Monitor labs -Monitor for active bleeding -Cont. PPI -Supportive care -GI will sign off at this time reconsult as needed. Pt seen and examined by Dr. Jeffers and myself and this note is written on his behalf. (2) GI bleed Qualifiers: GI bleed type/associated pathology: abeba Qualified Code(s): K92.1 - Abeba
[2018-08-27] MEDS ORDERED: Succinylcholine Inj 100 MG/5 ML Syringe IV.PUSH ONE (18:03)
[2018-08-27] MEDS ORDERED: Lidocaine PF 1% Inj 5 ML Syringe OTHER ONE (18:03)
[2018-08-27] MEDS: Bupivacaine PF 0.5% Inj 30 ML Vial INFILTRATN ONE ×2 (19:12→20:28)
[2018-08-27] MEDS ORDERED: Sugammadex Inj 200 MG/2 ML Vial IV.PUSH ONE (19:16)
[2018-08-27] MEDS ORDERED: Morphine Inj 30 MG/30 ML PCA.VIAL PCA PRN (19:30)
[2018-08-27] MEDS ORDERED: Potassium Chlor 40 mEq Premix 40 MEQ/100 ML PIGGYBACK IV.SIG PRN (19:30)
[2018-08-27] MEDS ORDERED: Naloxone Inj 0.4 MG/ML Vial IV.PUSH PRN (19:30)
[2018-08-27] MEDS ORDERED: Potassium Chlor 20 mEq Premix 20 MEQ/100 ML PIGGYBACK IV.SIG PRN (19:30)
[2018-08-27] MEDS ORDERED: fentaNYL Citrate Inj 100 MCG/2 ML Ampul ONE (19:45)
[2018-08-27] MEDS ORDERED: Bupivacaine 0.5% Inj 50 ML MDV Vial INFILTRATN ONE (19:55)
[2018-08-27] MEDS ORDERED: Ketorolac Inj 30 MG/ML (IVP) Vial IV.PUSH PRN (20:00)
[2018-08-27] MEDS ORDERED: *Ondansetron Inj 4 MG/2 ML Vial PERIprocedural Use ONLY ONE (20:08)
[2018-08-27] MEDS: KCL 20 mEq/D5W/NaCl 0.9% Inj 1,000 ML IV.CONT SCH (20:28)
[2018-08-27] MEDS ORDERED: *Promethazine Inj 25 MG/ML Vial PERIprocedural use ONLY ONE (20:48)
[2018-08-28 04:52] LABS: Baso % (Auto) 0.1 % (0.0-2.0); Hematocrit 32.7 % (35.0-46.0); Lymph # (Auto) 0.4 th/mm3 (1.0-4.8); Mean Corpuscular HGB Conc 33.7 % (32.0-36.0); Mean Corpuscular Hemoglobin 31.4 pg (27.0-34.0); Mean Corpuscular Volume 93.1 fL (80.0-100.0); Mean Platelet Volume 9.2 fL (7.0-11.0); Mono # (Auto) 1.7 th/mm3 (0.0-0.9); Mono % (Auto) 9.1 % (0.0-8.0); Neut # (Auto) 16.8 th/mm3 (1.8-7.7); Neut % (Auto) 88.8 % (16.0-70.0); Platelet Count 191 th/mm3 (150-450); Red Blood Count 3.51 mil/mm3 (4.00-5.30); White Blood Count 18.9 th/mm3 (4.0-11.0)
[2018-08-28 05:29] LABS: Calcium 7.3 mg/dL (8.5-10.1); Carbon Dioxide 20.5 meq/L (21.0-32.0); Potassium 3.1 meq/L (3.5-5.1)
[2018-08-28 06:03] LABS: Albumin 2.8 g/dL (3.4-5.0); Calcium-Albumin Corrected 8.3 mg/dL (8.5-10.1)
[2018-08-28] MEDS: KCL 20 mEq/D5W/NaCl 0.9% Inj 1,000 ML IV.CONT SCH ×3 (06:26→15:59)
[2018-08-28 07:22] LABS: Lymphocytes 1 % (9-44); Monocytes 6 % (0-8)
[2018-08-28 07:23] LABS: Platelet Estimate Normal (Normal); Platelet Morphology Normal (Normal)
[2018-08-28 07:24] LABS: RBC Morphology Normal (Normal)
[2018-08-28] MEDS: Levothyroxine 125 MCG Tablet PO SCH (10:11)
[2018-08-28] MEDS: Pantoprazole Inj 40 MG Vial IV.PUSH SCH (10:12)
[2018-08-28] MEDS: buPROPion 150 MG 12 HR Tablet PO SCH (10:12)
--- NOTE | 2018-08-28 16:54 | P.PNIM ---
Addendum entered and electronically signed by CANDIDO Parada 16:56: WBC this AM 18.9 patient afebrile possibly related to due to surgery yesterday recheck CBC in AM Original Note: Subjective Interval history: Patient S/P ascending colectomy with Dr. Petty 08/27/18 Patient sitting up in bed with [employer] pump- reports feeling well tolerating sips of clears Physical Exam Vital signs: Last Vital Signs Temp 98.1 F 08/28/18 12:00 Pulse 80 08/28/18 12:00 Resp 18 08/28/18 08:00 BP 140/75 08/28/18 12:00 Pulse Ox 96 08/28/18 15:20 Narrative: GENERAL: NAD, AAOx3, memory difficulties CARDIO: Regular rate and rhythm. RESP: Clear to auscultation. Breath sounds equal bilaterally. ABD: absent BS, soft, nondistended. EXT: Extremities without clubbing, cyanosis, or edema. No obvious deformities. Results Labs CBC & Chem 7: 08/29/18 03:39 08/29/18 03:39 Assessment and Plan Assessment (1) Abnormal colonoscopy: Code(s): R93.3 - Abnormal findings on diagnostic imaging of other parts of digestive tract Status: Acute (2) GI bleed: Code(s): K92.2 - Gastrointestinal hemorrhage, unspecified Status: Acute (3) Iron deficiency anemia: Code(s): D50.9 - Iron deficiency anemia, unspecified Status: Acute Plan Symptomatic anemia Hx of PUD - Pt is an 83 y/o female with anemia, hx of gastric ulcer in 2017, CKD, stage 3 , memory deficits, HTN, hyperlipidemia, and hypothyroidism. [place] [facility] [place] with complaints of increased weakness and vomiting. Pt has been having issues with anemia since 04/2018 when her Hgb went from 11.5 to 10.9. In review of outpt labs her H/H has been slowly decreasing since then and on most recent outpt labs her Hgb was 8.5 on 08/13/18. She has a hx of gastric ulcer in 2016. Pt was seen by [facility] as an outpt and is reportedly set up for an outpt EGD/colonoscopy on 08/28/[address] Pelletier. Pt presented to the ED with complaints of generalized weakness, and she had an episode of vomiting this morning that was reportedly brown. She reported dark tarry stools as well but this has been going on for some time, and feels that its been since she started on iron supplements. - Labs in the ED noted Hgb 8.9. Repeat labs on 08/24 with stable Hgb 8.8 - Cont. Protonix 40mg IV BID - Zofran PRN - Encourage oral intake - Re-evaluated the pt in the afternoon on 08/24 and she had vomiting with breakfast and is feeling quite weak. - Discussed with the pt and the family at bedside that with the pts vomiting and weakness it may be difficult for her to tolerate the prep for the colonoscopy on Sunday at home for the scheduled GI procedures on Sunday. They agreed and requested GI consultation. - Appreciate consult from GI. - Cont. Antiemetics PRN - Iron panel with serum Fe 18, TIBC 297, %Sat 6.1. Pt was given IV Venofer on 08/24 and 08/25 - Repeat labs this AM with Hgb 7.8. With pt being symptomatic with low BP and some dizziness she was transfused with 2 units of PRBCs on 08/25 - Pt underwent evaluation with EGD/colonoscopy 08/26/18 --> Esophagitis, HH, moderate diverticulosis in the sigmoid colon and descending colon, and half circumferential mass was found at the cecum; multiple biopsies were performed. 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 - Patient S/P ascending colectomy with Dr. Petty 08/27/18 - surgical pathology pending - tolerating sips of clears diet per Dr. Petty HTN - Pt was given IVF on 08/25 and BP improved after 2 units PRBCs - Monitor Hyperlipidemia - Cont. home meds Hypothyroidism - Cont. home meds CBC, BMP and Mag in AM Attending Attestation The exam, history, and the medical decision-making described in the above note were completed with the assistance of the mid-level provider. I reviewed and agree with the findings presented. I attest that I had a [id number] encounter with the patient on the same day, and personally performed and documented my assessment and findings in the medical record. Patient examined. Assessment and plan formulated with Lalitha CORDOBA I agree with the above. Progress Note: Quality VTE Deep Vein Thrombosis/Pulmonary Embolism Present on Admission: No _ (1) GI bleed Qualifiers: GI bleed type/associated pathology: melena Gastritis type: Qualified Code(s ): K92.1 - Melena (2) Iron deficiency anemia Qualifiers: Iron deficiency anemia type:
--- NOTE | 2018-08-28 17:51 | P.PNCS ---
Subjective Colorectal Surgery Post Op Day #: 1 Interval history: afebrile, VSS UO good comfortable Objective Result Diagrams: 08/28/18 03:56 08/28/18 03:56 Objective Remarks: PE alert Abd - soft, flat, wound dry Assessment and Plan - Plan Imp: stable post-op OOB decr IVF rsp Rx tx to floor
--- NOTE | 2018-08-28 22:28 | MP ---
cc: Stiven Petty MD,Stiven Luna,Eddie Singh MD DATE OF OPERATION: 08/27/2018 PREOPERATIVE DIAGNOSIS: Carcinoma of the ascending colon. PROCEDURE: Exploratory laparotomy with ascending colectomy. POSTOPERATIVE DIAGNOSIS: Carcinoma of the ascending colon. SURGEON: Stiven Petty MD ANIMAL CONTROL SPECIALIST: Dr. Jordan Luna PROCEDURE: The patient was placed in the supine position. After adequate general anesthesia, her abdomen was prepped with Betadine solution and draped in the usual sterile fashion. With Dr. Luna's assistance, an infraumbilical transverse incision was made, dividing the rectus muscles with electrocautery. Some adhesions to the parietal peritoneum were taken down sharply. Exploration revealed a rather bulky tumor in the cecum with some serosal puckering but it was not adherent to any surrounding structures. There was quite a bit of redundancy in the ascending colon. The distal colon was palpated very carefully and felt to be pretty unremarkable. The small bowel was run from ligament of Treitz down to the ileocecal valve and felt to be normal. The liver had some small cysts. The gallbladder was quite distended, but had no palpable stones. The stomach and duodenum were normal. First, the right colon was mobilized medially by dividing along the white line of Toldt. The right ureter was identified and carefully preserved. Dissection proceeded at the right gutter, taking down attachments to the hepatic flexure, mobilizing the gastrocolic omentum off the transverse colon and entering the lesser sac. The bowel was then divided in the right transverse colon using the LORA stapling device. The bowel was divided in the terminal ileum between Janelle clamps. The intervening mesentery taken between Kellys, obtaining hemostasis with Vicryl ties. Bowel continuity was then restored by firing the GI stapler across the antimesenteric ends of the bowel, closing the enterotomy with a TA 60 stapler. The mesenteric defect closed with a running Vicryl suture and a 3-0 Vicryl crotch suture was placed as well. Abdomen was irrigated copiously with normal saline. Adequate hemostasis was achieved at all sites. The transverse incision was closed anatomically in 2 layers using #1 PDS sutures to reapproximate the respective fascial layers. On-Q catheters were placed into the rectus sheaths on both sides and brought up through subcutaneous tunnel above the transverse incision. The subcutaneous tissues were irrigated copiously and the skin closed with a running subcuticular Vicryl suture. Wound area washed with normal saline and dried, sterile dressing of Telfa and gauze applied. The patient tolerated the procedure quite well and was brought to the recovery room in stable condition. Sponge and needle counts were correct at the end of the procedure. Stiven Petty MD [facility]/ted , 10:06 PM , 10:15 PM
[2018-08-29] MEDS: KCL 20 mEq/D5W/NaCl 0.9% Inj 1,000 ML IV.CONT SCH ×2 (02:05→06:33)
[2018-08-29 05:08] LABS: Baso # (Auto) 0.1 th/mm3 (0.0-0.2); Baso % (Auto) 0.6 % (0.0-2.0); Eos # (Auto) 0.1 th/mm3 (0.0-0.4); Eos % (Auto) 0.5 % (0.0-4.0); Hemoglobin 10.8 gm/dL (11.6-15.3); Lymph # (Auto) 1.1 th/mm3 (1.0-4.8); Lymph % (Auto) 8.9 % (9.0-44.0); Mean Corpuscular HGB Conc 33.9 % (32.0-36.0); Mean Corpuscular Hemoglobin 31.7 pg (27.0-34.0); Mean Corpuscular Volume 93.6 fL (80.0-100.0); Mean Platelet Volume 9.6 fL (7.0-11.0); Mono # (Auto) 2.3 th/mm3 (0.0-0.9); Mono % (Auto) 19.2 % (0.0-8.0); Neut # (Auto) 8.6 th/mm3 (1.8-7.7); Neut % (Auto) 70.8 % (16.0-70.0); Platelet Count 167 th/mm3 (150-450); Red Blood Count 3.42 mil/mm3 (4.00-5.30); Red Cell Distribution Width 14.1 % (11.6-17.2); White Blood Count 12.1 th/mm3 (4.0-11.0)
[2018-08-29 05:14] LABS: Carbon Dioxide 25.4 meq/L (21.0-32.0); Magnesium 1.6 mg/dL (1.5-2.5); Potassium 3.5 meq/L (3.5-5.1)
[2018-08-29 05:22] LABS: Albumin 2.5 g/dL (3.4-5.0); Calcium-Albumin Corrected 8.2 mg/dL (8.5-10.1)
[2018-08-29] MEDS: Levothyroxine 125 MCG Tablet PO SCH (06:26)
[2018-08-29] MEDS: KCL 20 mEq/D5W/NaCl 0.45% Inj 1,000 ML IV.CONT SCH ×3 (07:45→22:04)
[2018-08-29] MEDS: Pantoprazole Inj 40 MG Vial IV.PUSH SCH (09:25)
[2018-08-29] MEDS: buPROPion 150 MG 12 HR Tablet PO SCH (09:25)
--- NOTE | 2018-08-29 18:33 | P.PNIM ---
Subjective Interval history: small liquid BM Physical Exam Vital signs: Last Vital Signs Temp 98.1 F 08/29/18 16:09 Pulse 82 08/29/18 16:09 Resp 18 08/29/18 16:09 BP 178/98 H 08/29/18 16:09 Pulse Ox 94 L 08/29/18 16:09 Narrative: GENERAL: NAD, AAOx3, memory difficulties CARDIO: Regular rate and rhythm. RESP: Clear to auscultation. Breath sounds equal bilaterally. ABD: occasional BS, soft, nondistended. EXT: Extremities without clubbing, cyanosis, or edema. No obvious deformities. Results Labs CBC & Chem 7: 08/29/18 03:39 08/29/18 03:39 Assessment and Plan Assessment (1) Abnormal colonoscopy: Code(s): R93.3 - Abnormal findings on diagnostic imaging of other parts of digestive tract Status: Acute (2) GI bleed: Code(s): K92.2 - Gastrointestinal hemorrhage, unspecified Status: Acute (3) Iron deficiency anemia: Code(s): D50.9 - Iron deficiency anemia, unspecified Status: Acute Plan Symptomatic anemia Hx of PUD - Pt is an 83 y/o female with anemia, hx of gastric ulcer in 2017, CKD, stage 3 , memory deficits, HTN, hyperlipidemia, and hypothyroidism. She presented to the ED at [facility] [place] on 08/23/18 with complaints of increased weakness and vomiting. Pt has been having issues with anemia since 04/2018 when her Hgb went from 11.5 to 10.9. In review of outpt labs her H/H has been slowly decreasing since then and on most recent outpt labs her Hgb was 8.5 on 08/13/18. She has a hx of gastric ulcer in 2016. Pt was seen by [facility] as an outpt and is reportedly set up for an outpt EGD/colonoscopy on 08/28/[address] Pelletier. Pt presented to the ED with complaints of generalized weakness, and she had an episode of vomiting this morning that was reportedly brown. She reported dark tarry stools as well but this has been going on for some time, and feels that its been since she started on iron supplements. - Labs in the ED noted Hgb 8.9. Repeat labs on 08/24 with stable Hgb 8.8 - Cont. Protonix 40mg IV BID - Zofran PRN - Encourage oral intake - Re-evaluated the pt in the afternoon on 08/24 and she had vomiting with breakfast and is feeling quite weak. - Discussed with the pt and the family at bedside that with the pts vomiting and weakness it may be difficult for her to tolerate the prep for the colonoscopy on Sunday at home for the scheduled GI procedures on Sunday. They agreed and requested GI consultation. - Appreciate consult from GI. - Cont. Antiemetics PRN - Iron panel with serum Fe 18, TIBC 297, %Sat 6.1. Pt was given IV Venofer on 08/24 and 08/25 - Repeat labs this AM with Hgb 7.8. With pt being symptomatic with low BP and some dizziness she was transfused with 2 units of PRBCs on 08/25 - Pt underwent evaluation with EGD/colonoscopy 08/26/18 --> Esophagitis, HH, moderate diverticulosis in the sigmoid colon and descending colon, and half circumferential mass was found at the cecum; multiple biopsies were performed. [place] that this is likely Ca Colon - pathology from 08/26/18 ceum bx revealed: villoglandular polyps with focus of invasive intramucosal carcinoma - CRS was consulted by GI on 08/26. - Patient S/P ascending colectomy with Dr. Petty 08/27/18 - surgical pathology pending - tolerating sips - Case d/w Dr. Petty (08/29) - will advance diet to clears HTN - Pt was given IVF on 08/25 and BP improved after 2 units PRBCs - Monitor Hyperlipidemia - Cont. home meds Hypothyroidism - Cont. home meds CBC, BMP and Mag in AM Progress Note: Quality VTE Deep Vein Thrombosis/Pulmonary Embolism Present on Admission: No _ (1) GI bleed Qualifiers: GI bleed type/associated pathology: melena Gastritis type: Qualified Code(s ): K92.1 - Melena (2) Iron deficiency anemia Qualifiers: Iron deficiency anemia type:
[2018-08-30] MEDS: Levothyroxine 125 MCG Tablet PO SCH (05:01)
[2018-08-30] MEDS: Pantoprazole Inj 40 MG Vial IV.PUSH SCH (08:57)
[2018-08-30] MEDS: buPROPion 150 MG 12 HR Tablet PO SCH (08:58)
--- NOTE | 2018-08-30 12:36 | P.PNIM ---
Subjective Interval history: Pt tolerating clear liquid diet. Nursing reports small mucous BM. Physical Exam Vital signs: Last Vital Signs Temp 98.3 F 08/30/18 09:19 Pulse 92 H 08/30/18 09:19 Resp 20 08/30/18 09:19 BP 149/91 H 08/30/18 09:19 Pulse Ox 96 08/30/18 09:19 Narrative: GENERAL: NAD, AAOx3, memory difficulties CARDIO: Regular rate and rhythm. RESP: Clear to auscultation. Breath sounds equal bilaterally. ABD: +BSx4 EXT: Extremities without clubbing, cyanosis, or edema. No obvious deformities. Results Labs CBC & Chem 7: 09/01/18 07:02 09/02/18 06:16 Assessment and Plan Assessment (1) Abnormal colonoscopy: Code(s): R93.3 - Abnormal findings on diagnostic imaging of other parts of digestive tract Status: Acute (2) GI bleed: Code(s): K92.2 - Gastrointestinal hemorrhage, unspecified Status: Acute (3) Iron deficiency anemia: Code(s): D50.9 - Iron deficiency anemia, unspecified Status: Acute Plan Symptomatic anemia Hx of PUD - Pt is an 83 y/o female with anemia, hx of gastric ulcer in 2017, CKD, stage 3 , memory deficits, HTN, hyperlipidemia, and hypothyroidism. She presented to the ED at [facility] [place] on 08/23/18 with complaints of increased weakness and vomiting. Pt has been having issues with anemia since 04/2018 when her Hgb went from 11.5 to 10.9. In review of outpt labs her H/H has been slowly decreasing since then and on most recent outpt labs her Hgb was 8.5 on 08/13/18. She has a hx of gastric ulcer in 2017. Pt was seen by [facility] as an outpt and is reportedly set up for an outpt EGD/colonoscopy on 08/28/[address] Pelletier. Pt presented to the ED with complaints of generalized weakness, and she had an episode of vomiting this morning that was reportedly brown. She reported dark tarry stools as well but this has been going on for some time, and feels that its been since she started on iron supplements. - Labs in the ED noted Hgb 8.9. Repeat labs on 08/24 with stable Hgb 8.8 - Cont. Protonix 40mg IV BID - Zofran PRN - Encourage oral intake - Re-evaluated the pt in the afternoon on 08/24 and she had vomiting with breakfast and is feeling quite weak. - Discussed with the pt and the family at bedside that with the pts vomiting and weakness it may be difficult for her to tolerate the prep for the colonoscopy on Sunday at home for the scheduled GI procedures on Sunday. They agreed and requested GI consultation. - Appreciate consult from GI. - Cont. Antiemetics PRN - Iron panel with serum Fe 18, TIBC 297, %Sat 6.1. Pt was given IV Venofer on 08/24 and 08/25 - Repeat labs this AM with Hgb 7.8. With pt being symptomatic with low BP and some dizziness she was transfused with 2 units of PRBCs on 08/25 - Pt underwent evaluation with EGD/colonoscopy 08/26/18 --> Esophagitis, HH, moderate diverticulosis in the sigmoid colon and descending colon, and half circumferential mass was found at the cecum; multiple biopsies were performed. [place] that this is likely Ca Colon - pathology from 08/26/18 ceum bx revealed: villoglandular polyps with focus of invasive intramucosal carcinoma - CRS was consulted by GI on 08/26. - Patient S/P ascending colectomy with Dr. 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 -RESECTION MARGINS ARE NEGATIVE FOR MALIGNANCY - Case d/w Dr. Petty (08/29) - Pt is tolerating clears - SCDs for DVT prophylaxis - supportive care HTN - Pt was given IVF on 08/25 and BP improved after 2 units PRBCs - Monitor Hyperlipidemia - Cont. home meds Hypothyroidism - Cont. home meds CBC, BMP and Mag in AM Progress Note: Quality VTE Deep Vein Thrombosis/Pulmonary Embolism Present on Admission: No _ (1) GI bleed Qualifiers: GI bleed type/associated pathology: melena Gastritis type: Qualified Code(s ): K92.1 - Melena (2) Iron deficiency anemia Qualifiers: Iron deficiency anemia type:
[2018-08-30] MEDS: KCL 20 mEq/D5W/NaCl 0.45% Inj 1,000 ML IV.CONT SCH ×2 (13:22→18:27)
--- NOTE | 2018-08-30 18:56 | MB ---
cc: Merlyn Guzman MD DATE: 08/30/2018 REASON FOR CONSULTATION: Consult requested by Dr. Benson for evaluation of recently diagnosed cecal colon cancer. HISTORY OF PRESENT ILLNESS: This is an 83-year-old very pleasant white female. She has multiple medical problems including dementia. She has a history of anemia dating back to 04/2018. She was referred to woven label designer. She was scheduled to have upper endoscopy and colonoscopy a couple of days ago. However, the patient reported to the emergency room when she had vomiting brown colored. She has been having dark stools and she was feeling extremely weak and tired. The patient's hemoglobin on admission was 8.9. GI was consulted. She underwent an upper endoscopy which came back normal. She also had a colonoscopy which showed a large cecal mass consistent with cancer. Multiple biopsies were obtained. The pathology report came back positive for adenocarcinoma. Dr. Petty was consulted. The patient underwent right hemicolectomy 2 days ago. The pathology report shows adenocarcinoma of the cecum with metastasis to 1 lymph node. I have been asked to see the patient for colon cancer. The patient had a chest x-ray, CT of abdomen and pelvis which does not show any evidence of metastatic disease. Her CEA is normal at 4.6. The patient is still recovering from the surgery. She was sitting on the chair. She appears to be confused at times to me. I do not know her baseline, but the medical records show that she has problem with memory, most likely dementia. The rest of the review of systems is negative. PAST MEDICAL HISTORY: Peptic ulcer disease, chronic kidney disease, dementia, hypertension, hypercholesterolemia, hypothyroidism, depression, arthritis and anemia. PAST SURGICAL HISTORY: Total abdominal hysterectomy, humerus fracture repair, cataract surgery, upper endoscopy. ALLERGIES: SULFA AND TOBRAMYCIN. MEDICATIONS: Prior to coming the hospital: 1. Bupropion. 2. Buspirone. 3. Calcium. 4. Vitamin D3. 5. Galantamine. 6. Venlafaxine. 7. Iron. 8. Levothyroxine. 9. Magnesium. 10. Memantine. 11. Simvastatin. 12. Telmisartan. FAMILY HISTORY: The patient had a daughter who was murdered. She does not have any living siblings. SOCIAL HISTORY: The patient is a , lives with her friend. She does not smoke cigarettes and does not drink alcohol. PHYSICAL EXAMINATION: GENERAL: Reveals a well-developed, frail, white female in no apparent distress. VITAL SIGNS: Temperature 97.7, heart rate is 87, blood pressure 143/87. HEENT: PERRLA. EOMI, anicteric. No oral lesions noted. NECK: No lymphadenopathy noted. LUNGS: Clear. No wheezing, rhonchi or rales. CARDIOVASCULAR: Regular rate and rhythm. ABDOMEN: Soft, tender from the recent surgery 2 days ago. EXTREMITIES: No pedal edema. NEUROLOGIC: Awake, alert, oriented x2. SKIN: No significant lesions noted. ASSESSMENT AND PLAN: Cecal colon cancer, status post right hemicolectomy. The pathology report shows pT2 pN1 M0, stage III. PLAN: I have reviewed her available records, and I had an extensive discussion with the patient regarding the diagnosis, treatment and prognosis of stage III colon cancer. According to the NCCN guidelines, adjuvant chemotherapy is recommended for stage III colon cancer. However, she has only 1/24 lymph nodes positive for cancer. She has multiple medical problems including dementia. She is frail. I do not know her baseline performance status. She is still recovering from surgery which was done 2 days ago. Based on all these multiple factors, I do not recommend any adjuvant chemotherapy. Certainly, this needs to be readdressed once she is discharged to home and come to the office and see if her performance status has improved and whether she wants to be observed or try adjuvant chemotherapy. She states that she lives with a friend and she would like her to come to the appointment so that they can make a decision. At this time, I do not think that she is a good candidate for adjuvant chemotherapy. We have to wait for at least 3-4 weeks to start treatment to give enough time for her to heal from the surgery. I have discussed the case with Dr. Benson. Once she is discharged to home, then she will come to our office for further discussion. Thank you for asking my opinion. MD KADE Patton/natasha , 05:18 PM , 05:34 PM YIFAN
--- NOTE | 2018-08-30 22:33 | P.PNCS ---
Subjective Colorectal Surgery Post Op Day #: 2 Interval history: afebrile, VSS UO good +BM Objective Result Diagrams: 08/29/18 03:39 08/29/18 03:39 Objective Remarks: PE alert Abd - soft, flat, wound dry, less tympany Assessment and Plan - Plan Imp: OOB decr IVF rsp Rx tx to floor DC plans
[2018-08-31] MEDS: Levothyroxine 125 MCG Tablet PO SCH (06:13)
--- NOTE | 2018-08-31 07:33 | P.PNCS ---
Subjective Colorectal Surgery Post Op Day #: 4 Interval history: s/p ascending colectomy comfortable Objective Result Diagrams: 08/29/18 03:39 08/29/18 03:39 Objective Remarks: Abdomen soft, nondistended, mildly tender wound clean Assessment and Plan - Plan Advance diet HL IV Will need inpatient rehab
[2018-08-31] MEDS: buPROPion 150 MG 12 HR Tablet PO SCH (09:40)
[2018-08-31] MEDS: Pantoprazole Inj 40 MG Vial IV.PUSH SCH (09:41)
--- NOTE | 2018-08-31 11:33 | P.PNIM ---
Subjective Interval history: Patient oriented to self and location today, but reports feeling confused Patient was moved from forth floor to seventh floor last night, does have underlining dementia and recent ascending colectomy with Dr. Petty 08/27/18 Physical Exam Vital signs: Last Vital Signs Temp 97.8 F 08/31/18 08:00 Pulse 82 08/31/18 08:00 Resp 19 08/31/18 08:00 BP 150/72 H 08/31/18 08:00 Pulse Ox 92 L 08/31/18 08:00 Narrative: GENERAL: NAD, AAOx2, memory difficulties CARDIO: Regular rate and rhythm. RESP: Clear to auscultation. Breath sounds equal bilaterally. ABD: hypoactive BSx4 EXT: Extremities without clubbing, cyanosis, or edema. No obvious deformities. Results Labs CBC & Chem 7: 09/01/18 07:02 09/02/18 06:16 Assessment and Plan Assessment (1) Abnormal colonoscopy: Code(s): R93.3 - Abnormal findings on diagnostic imaging of other parts of digestive tract Status: Acute (2) GI bleed: Code(s): K92.2 - Gastrointestinal hemorrhage, unspecified Status: Acute (3) Iron deficiency anemia: Code(s): D50.9 - Iron deficiency anemia, unspecified Status: Acute Plan Symptomatic anemia Hx of PUD - Pt is an 83 y/o female with anemia, hx of gastric ulcer in 2017, CKD, stage 3 , memory deficits, HTN, hyperlipidemia, and hypothyroidism. [place] [facility] [place] with complaints of increased weakness and vomiting. Pt has been having issues with anemia since 04/2018 when her Hgb went from 11.5 to 10.9. In review of outpt labs her H/H has been slowly decreasing since then and on most recent outpt labs her Hgb was 8.5 on 08/13/18. She has a hx of gastric ulcer in 2017. Pt was seen by [facility] as an outpt and is reportedly set up for an outpt EGD/colonoscopy on 08/28/[address] Pelletier. Pt presented to the ED with complaints of generalized weakness, and she had an episode of vomiting this morning that was reportedly brown. She reported dark tarry stools as well but this has been going on for some time, and feels that its been since she started on iron supplements. - Labs in the ED noted Hgb 8.9. Repeat labs on 08/24 with stable Hgb 8.8 - Cont. Protonix 40mg IV BID - Zofran PRN - Encourage oral intake - Re-evaluated the pt in the afternoon on 08/24 and she had vomiting with breakfast and is feeling quite weak. - Discussed with the pt and the family at bedside that with the pts vomiting and weakness it may be difficult for her to tolerate the prep for the colonoscopy on Sunday at home for the scheduled GI procedures on Sunday. They agreed and requested GI consultation. - Appreciate consult from GI. - Cont. Antiemetics PRN - Iron panel with serum Fe 18, TIBC 297, %Sat 6.1. Pt was given IV Venofer on 08/24 and 08/25 - Repeat labs this AM with Hgb 7.8. With pt being symptomatic with low BP and some dizziness she was transfused with 2 units of PRBCs on 08/25 - Pt underwent evaluation with EGD/colonoscopy 08/26/18 --> Esophagitis, HH, moderate diverticulosis in the sigmoid colon and descending colon, and half circumferential mass was found at the cecum; multiple biopsies were performed. [place] that this is likely Ca Colon - pathology from 08/26/18 ceum bx revealed: villoglandular polyps with focus of invasive intramucosal carcinoma - CRS was consulted by GI on 08/26. - Patient S/P ascending colectomy with Dr. 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 -RESECTION MARGINS ARE NEGATIVE FOR MALIGNANCY - Case d/w Dr. Petty (08/29) - Pt is tolerating clears diet advanced to full liquids per colorectal surgery - SCDs for DVT prophylaxis - supportive care Confusion - Patient oriented to self and location today, but reports feeling confused - Patient was moved from forth floor to seventh floor last night, does have underlining dementia and recent ascending colectomy with Dr. Petty 08/27/18 - continue home memantine - frequent reorientation - labs in AM - patient will likely need SNF at time of DC - consult case management - reconsult PT for evaluation HTN - Pt was given IVF on 2/10 and BP improved after 2 units PRBCs - Monitor Hyperlipidemia - Cont. home meds Hypothyroidism - Cont. home meds Attending Attestation The exam, history, and the medical decision-making described in the above note were completed with the assistance of the mid-level provider. I reviewed and agree with the findings presented. I attest that I had a [id number] encounter with the patient on the same day, and personally performed and documented my assessment and findings in the medical record. Patient examined. Assessment and plan formulated with Lalitha Chen PA-C. I agree with the above. Progress Note: Quality VTE Deep Vein Thrombosis/Pulmonary Embolism Present on Admission: No _ (1) GI bleed Qualifiers: GI bleed type/associated pathology: melena Gastritis type: Qualified Code(s ): K92.1 - [place]ena (2) Iron deficiency anemia Qualifiers: Iron deficiency anemia type:
--- NOTE | 2018-08-31 13:41 | P.PNONC ---
Subjective Interval history: Patient lying in bed, in no acute distress. She has a history of dementia and is quite forgetful. Her brother is at the bedside. She reports that she forgot she had cancer. She reports that she lives with a close friend of hers. We have discussed oncology follow-up once discharged. I am not certain that the patient will remember this conversation. Objective Vital Signs/Intake & Output: Vital Signs 08/30/18 15:29 08/30/18 17:19 08/30/18 20:00 Temperature 97.7 F 97.7 F 97.8 F Pulse Rate 87 87 92 H Respiratory Rate 20 20 20 Blood Pressure 143/87 H 143/84 H 149/77 H Pulse Oximetry 94 L 94 L 93 L 08/30/18 20:56 08/31/18 00:00 08/31/18 03:00 Temperature 98.9 F Pulse Rate 83 Respiratory Rate 18 18 Blood Pressure 158/85 H Pulse Oximetry 93 L 94 L 08/31/18 03:52 08/31/18 08:00 Temperature 97.6 F 97.8 F Pulse Rate 84 82 Respiratory Rate 18 19 Blood Pressure 149/84 H 150/72 H Pulse Oximetry 93 L 92 L Intake & Output 08/30/18 08/31/18 08/31/18 18:59 06:59 18:59 Intake Total 1959 Output Total 2149 Balance -190 / -190 -2150 / -0 Weight 69 kg Intake: IV 1000 / 1000 D5W/1/2NS + KCL 20 mEq Inj 1, 1000 / 1000 000 ML @ 70 mls/hr IV.CONT . [id number] [facility] Rx#:[id number] Oral 960 / 960 Output: Urine Amount (Catheter) 2149 / 2149 Indwelling Urethral Catheter 2149 Other: Date of Last Bowel Movement 08/30/18 08/30/18 # Bowel Movements 1 Result Diagrams: 08/29/18 03:39 08/29/18 03:39 Medications: Active Medications Generic Name Dose Route Start Last Admin Trade Name Freq PRN Reason Stop Dose Admin Atorvastatin Calcium 40 mg 08/23/18 19:30 08/30/18 17:38 Lipitor PO 40 mg QPM DOLLY Administration Bupropion HCl 150 mg 08/23/18 19:15 08/31/18 09:40 Wellbutrin Sr PO 150 mg DAILY DOLLY Administration Buspirone HCl 5 mg 08/23/18 20:00 08/31/18 12:37 Buspar PO 5 mg TID DOLLY Administration Enalaprilat 2.5 mg 08/27/18 19:30 08/29/18 16:04 Vasotec Inj IV.PUSH 2.5 mg Q6H PRN Administration SBP > 160 mmHg Furosemide 10 mg 08/30/18 09:00 08/31/18 09:41 Lasix Inj IV.PUSH 10 mg Q12HR DOLLY Administration Galantamine Hydrobromide 8 mg 08/23/18 21:00 08/31/18 09:41 Razadyne PO 8 mg BID DOLLY Administration Potassium Chloride 20 meq in 100 mls @ 50 mls/hr 08/27/18 19:30 08/28/18 18: 22 Kcl 20 Meq Premix Inj IV.SIG Infused UNSCH PRN Infusion for K+ level 3.0-3.5 Levothyroxine Sodium 125 mcg 08/24/18 06:00 08/31/18 06:13 Synthroid PO 125 mcg DAILY@0600 DOLLY Administration Losartan Potassium 50 mg 08/24/18 09:00 08/31/18 09:41 Cozaar PO 50 mg DAILY DOLLY Administration Memantine 10 mg 08/24/18 09:00 08/31/18 09:41 Namenda PO 10 mg DAILY DOLLY Administration Oxycodone/Acetaminophen 2 tab 08/27/18 19:30 08/31/18 09:42 Percocet 5/325 Mg PO 2 tab Q4H PRN Administration PAIN SCALE 6 TO 10 Pantoprazole Sodium 40 mg 08/28/18 09:00 08/31/18 09:41 Protonix Inj IV.PUSH 40 mg DAILY DOLLY Administration Sodium Chloride 2 ml 08/27/18 21:00 08/31/18 09:41 Ns Flush IV.FLUSH Not Given BID DOLLY Sodium Chloride 2 ml 08/27/18 19:30 08/29/18 13:15 Ns Flush IV.FLUSH 2 ml PRN PRN Administration FLUSH AFTER USING IV ACCESS Objective Remarks: GENERAL: Elderly female patient, in no acute distress. SKIN: Pale, warm and dry. HEAD: Normocephalic. EYES: No scleral icterus. No injection or drainage. MOUTH: Dry mucous membranes. No lesions or ulcers noted. NECK: Supple, trachea midline. CARDIOVASCULAR: Regular rate and rhythm without murmurs. RESPIRATORY: Anterior breath sounds clear, equal bilaterally. Nonlabored at rest. GASTROINTESTINAL: Abdomen soft, tender to surgical area, nondistended. Surgical scar to transverse RUQ. EXTREMITIES: No cyanosis, or edema. MUSCULOSKELETAL: Adequate muscle tone. NEUROLOGICAL: Pleasantly confused. Awake, alert. Assessment/Plan - Plan Ms. Walker is a pleasantly confused 83-year-old female patient with a history of dementia. Recently diagnosed with stage III colon cancer. Plan: 1. Colon cancer, patient will need to follow-up with oncology once discharged. Treatment options were discussed with her with Dr. Guzman yesterday, however the patient does not remember this conversation. It is unclear if she will be a candidate for adjuvant chemotherapy given her frailty. 2. Follow-up with medical oncology once discharged. - Attending Statement The exam, history, and the medical decision-making described in the above note were completed with the assistance of the mid-level provider. I reviewed and agree with the findings presented. I attest that I had a [id number] encounter with the patient on the same day, and personally performed and documented my assessment and findings in the medical record. Patient denies any complaint She did not recognize me that I saw her yesterday. When I ask her does she know why she had the surgery for. She was unable to give me the answer I had explained to her yesterday that she had stage III colon cancer. She could not remember anything about it. Her roommate friend and another friend were present at bedside. According to them patient has short-term memory loss due to dementia Patient needs to come to the office for follow-up when she is discharged to home Both friends asked me several questions in the hallway as they do not want to talk in front of the patient. I have answered their questions.
[2018-08-31] MEDS: KCL 20 mEq/D5W/NaCl 0.45% Inj 1,000 ML IV.CONT SCH (15:58)
[2018-09-01] MEDS: Levothyroxine 125 MCG Tablet PO SCH (05:32)
--- NOTE | 2018-09-01 09:02 | P.PNCS ---
Subjective Colorectal Surgery Post Op Day #: 5 Interval history: s/p ascending colectomy comfortable Objective Result Diagrams: 08/29/18 03:39 08/29/18 03:39 Objective Remarks: Abdomen soft, nondistended, mildly tender wound clean Assessment and Plan - Plan Advance diet d/c marroquin awaiting placement
[2018-09-01] MEDS: Pantoprazole Inj 40 MG Vial IV.PUSH SCH (09:03)
[2018-09-01] MEDS: buPROPion 150 MG 12 HR Tablet PO SCH (09:04)
[2018-09-01 09:27] LABS: Baso # (Auto) 0.1 th/mm3 (0.0-0.2); Baso % (Auto) 0.7 % (0.0-2.0); Eos # (Auto) 0.2 th/mm3 (0.0-0.4); Eos % (Auto) 2.1 % (0.0-4.0); Hematocrit 32.4 % (35.0-46.0); Lymph % (Auto) 12.1 % (9.0-44.0); Mean Corpuscular HGB Conc 33.9 % (32.0-36.0); Mean Corpuscular Hemoglobin 31.3 pg (27.0-34.0); Mean Corpuscular Volume 92.2 fL (80.0-100.0); Mean Platelet Volume 9.3 fL (7.0-11.0); Mono # (Auto) 1.4 th/mm3 (0.0-0.9); Mono % (Auto) 17.3 % (0.0-8.0); Neut # (Auto) 5.4 th/mm3 (1.8-7.7); Neut % (Auto) 67.8 % (16.0-70.0); Platelet Count 206 th/mm3 (150-450); Red Blood Count 3.51 mil/mm3 (4.00-5.30); Red Cell Distribution Width 14.3 % (11.6-17.2); White Blood Count 7.9 th/mm3 (4.0-11.0)
--- NOTE | 2018-09-01 09:47 | P.PNIM ---
Subjective Interval history: Patient sitting up in chair with family member at bedside patient is passing flatus and RN reports patient had small BM last night Physical Exam Vital signs: Last Vital Signs Temp 97.9 F 09/01/18 02:06 Pulse 79 09/01/18 02:06 Resp 18 09/01/18 02:06 BP 140/80 09/01/18 02:06 Pulse Ox 93 L 09/01/18 02:06 Narrative: GENERAL: NAD, AAOx2, memory difficulties CARDIO: Regular rate and rhythm. RESP: Clear to auscultation. Breath sounds equal bilaterally. ABD: hypoactive BSx4 EXT: Extremities without clubbing, cyanosis, or edema. No obvious deformities. Results Labs CBC & Chem 7: 09/01/18 07:02 09/02/18 06:16 Assessment and Plan Plan Symptomatic anemia Hx of PUD - Pt is an 83 y/o female with anemia, hx of gastric ulcer in 2016, CKD, stage 3 , memory deficits, HTN, hyperlipidemia, and hypothyroidism. She presented to the ED at [facility] [place] [facility] on 08/23/18 with complaints of increased weakness and vomiting. Pt has been having issues with anemia since 04/2018 when her Hgb went from 11.5 to 10.9. In review of outpt labs her H/H has been slowly decreasing since then and on most recent outpt labs her Hgb was 8.5 on 08/13/18. She has a hx of gastric ulcer in 2016. Pt was seen by [facility] as an outpt and is reportedly set up for an outpt EGD/colonoscopy on 08/28/[address] Pelletier. Pt presented to the ED with complaints of generalized weakness, and she had an episode of vomiting this morning that was reportedly brown. She reported dark tarry stools as well but this has been going on for some time, and feels that its been since she started on iron supplements. - Labs in the ED noted Hgb 8.9. Repeat labs on 08/24 with stable Hgb 8.8 - Cont. Protonix 40mg IV BID - Zofran PRN - Encourage oral intake - Re-evaluated the pt in the afternoon on 08/24 and she had vomiting with breakfast and is feeling quite weak. - Discussed with the pt and the family at bedside that with the pts vomiting and weakness it may be difficult for her to tolerate the prep for the colonoscopy on Sunday at home for the scheduled GI procedures on Sunday. They agreed and requested GI consultation. - Appreciate consult from GI. - Cont. Antiemetics PRN - Iron panel with serum Fe 18, TIBC 297, %Sat 6.1. Pt was given IV Venofer on 08/24 and 08/25 - Repeat labs this AM with Hgb 7.8. With pt being symptomatic with low BP and some dizziness she was transfused with 2 units of PRBCs on 08/25 - Pt underwent evaluation with EGD/colonoscopy 08/26/18 --> Esophagitis, HH, moderate diverticulosis in the sigmoid colon and descending colon, and half circumferential mass was found at the cecum; multiple biopsies were performed. [place] that this is likely Ca Colon - pathology from 08/26/18 ceum bx revealed: villoglandular polyps with focus of invasive intramucosal carcinoma - CRS was consulted by GI on 08/26. - Patient S/P ascending colectomy with Dr. 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 -RESECTION MARGINS ARE NEGATIVE FOR MALIGNANCY - Case d/w Dr. Petty (08/29) - Pt is tolerating full liquids, diet advanced toregular diet per colorectal surgery - SCDs for DVT prophylaxis - supportive care Dementia Confusion - patient's baseline - Patient oriented to self and location - continue home memantine - frequent reorientation - patient will likely need SNF at time of DC - consult case management - reconsult PT recommending rehab HTN - Pt was given IVF on 08/25 and BP improved after 2 units PRBCs - Monitor Hyperlipidemia - Cont. home meds Hypothyroidism - Cont. home meds BMP pending Possible DC to SNF tomorrow once cleared by Dr. ePtty Attending Attestation The exam, history, and the medical decision-making described in the above note were completed with the assistance of the mid-level provider. I reviewed and agree with the findings presented. I attest that I had a [id number] encounter with the patient on the same day, and personally performed and documented my assessment and findings in the medical record. Patient examined. Assessment and plan formulated with Lalitha Chen PA-C. I agree with the above. Progress Note: Quality VTE Deep Vein Thrombosis/Pulmonary Embolism Present on Admission: No
[2018-09-01 10:05] LABS: Calcium 8.2 mg/dL (8.5-10.1); Carbon Dioxide 29.7 meq/L (21.0-32.0); Magnesium 1.6 mg/dL (1.5-2.5)
[2018-09-01 10:43] LABS: Eosinophils 1 % (0-4); Lymphocytes 10 % (9-44); Monocytes 12 % (0-8); Platelet Estimate Normal (Normal); Platelet Morphology Normal (Normal)
--- NOTE | 2018-09-01 14:13 | P.DS ---
DS: Providers Date of admission: 08/26/18 11:15 Primary care physician: Kye Hodge MD, PhD Consults: 08/24/18 13:08 Consult to Gastroenterology Routine Consulting Provider: Bud Perez Reason for Consultation: Anemia, vomiting. Pt scheduled for outpt EGD/ colonoscopy on Sunday but now with vomiting and weakness Notified:: Service Spoke with:: KRISTEN Date Notified:: 08/24/18 Time Notified:: 13:24 Ordering Provider: EVENS 08/26/18 14:15 Consult to Colorectal Surgery Routine Consulting Provider: Stiven Petty Reason for Consultation: colorectal mass Notified:: Office Spoke with:: Emerald Date Notified:: 08/26/18 Time Notified:: 14:19 Ordering Provider: PATO 08/30/18 12:55 Consult to Oncology Routine Consulting Provider: Darling Guzman Miner Helper:: Aylin Guzman Reason for Consultation: colon cancer, adenocarcinoma s/p surgical resection Notified:: Office Spoke with:: bev Date Notified:: 08/30/18 Time Notified:: 13:02 Ordering Provider: LEONELA 09/01/18 11:28 HUB Only Consult Order Routine Consulting Provider: [facility] Brief History from admission: Ms. Walker is an 83 y/o female with anemia, hx of gastric ulcer in 2017, CKD, stage 3, memory deficits, HTN, hyperlipidemia, and hypothyroidism. She [place] [facility] [place] with complaints of increased weakness. Pt has been having issues with anemia since 04/2018 when her Hgb went from 11.5 to 10.9. In review of outpt labs her H/H has been slowly decreasing since then and on most recent outpt labs her Hgb was 8.5 on 08/13/18. She has a hx of gastric ulcer in 2017. Pt was seen by [facility] as an outpt and is reportedly set up for an outpt EGD/colonoscopy on 08/28/[address] Pelletier. Pt presented to the ED with complaints of generalized weakness, and she had an episode of vomiting this morning that was reportedly brown. She denies any hematemesis or coffee-ground emesis. She denies any abd pain. She has been having issues with dark stools which she reports she unclear of how long thats been going on but thinks that its been as long as shes been on iron supplements. Pt denies any SOB, chest pain, palpitations, dizziness, lightheadedness, abdominal pain, reflux, or dysphagia. Past Medical Hx: HTN Hyperlipidemia Hypothyroidism Anemia Gastric ulcer in 2017 Memory deficits Major depression DDD lumbar spine Past Surgical Hx EGD on 12/13/[address] Pelletier --> gastritis, esophagitis, duodenitis, hiatal hernia EGD on 10/16/[address] Pelletier --> gastritis, healed ulcer in the antrum EGD on 09/15/[address] Pelletier --> 2 clean based ulcers, no active bleeding. Cataracts surgery Total abdominal hysterectomy Humerus fracture repair Family Hx: Noncontributory Social Hx Denies any alcohol, tobacco or illicit drug use Lives in a private residence, has a roommate DS: Summary Adenocarcinoma Symptomatic anemia Hx of PUD - Pt is an 83 y/o female with anemia, hx of gastric ulcer in 2017, CKD, stage 3 , memory deficits, HTN, hyperlipidemia, and hypothyroidism. She presented [place] [facility] [place] with complaints of increased weakness and vomiting. Pt has been having issues with anemia since 04/2018 when her Hgb went from 11.5 to 10.9. In review of outpt labs her H/H has been slowly decreasing since then and on most recent outpt labs her Hgb was 8.5 on 08/13/18. She has a hx of gastric ulcer in 2016. Pt was seen by [facility] as an outpt and is reportedly set up for an outpt EGD/colonoscopy on 08/28/[address] Pelletier. Pt presented to the ED with complaints of generalized weakness, and she had an episode of vomiting this morning that was reportedly brown. She reported dark tarry stools as well but this has been going on for some time, and feels that its been since she started on iron supplements. - Labs in the ED noted Hgb 8.9. Repeat labs on 08/24 with stable Hgb 8.8 -> 11 () - Cont. Protonix 40mg IV BID - Zofran PRN - Encourage oral intake - Re-evaluated the pt in the afternoon on 08/24 and she had vomiting with breakfast and is feeling quite weak. - Discussed with the pt and the family at bedside that with the pts vomiting and weakness it may be difficult for her to tolerate the prep for the colonoscopy on Sunday at home for the scheduled GI procedures on Sunday. They agreed and requested GI consultation. - Appreciate consult from GI. - Cont. Antiemetics PRN - Iron panel with serum Fe 18, TIBC 297, %Sat 6.1. Pt was given IV Venofer on 08/24 and 08/25 - Repeat labs this AM with Hgb 7.8. With pt being symptomatic with low BP and some dizziness she was transfused with 2 units of PRBCs on 08/25 - Pt underwent evaluation with EGD/colonoscopy 08/26/18 --> Esophagitis, HH, moderate diverticulosis in the sigmoid colon and descending colon, and half circumferential mass was found at the cecum; multiple biopsies were performed. [place] that this is likely Ca Colon - pathology from 08/26/18 ceum bx revealed: villoglandular polyps with focus of invasive intramucosal carcinoma - CRS was consulted by GI on 08/26. - Patient S/P ascending colectomy with Dr. 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 -RESECTION MARGINS ARE NEGATIVE FOR MALIGNANCY - Case d/w Dr. Petty (08/29) - Pt is tolerating full liquids, diet advanced toregular diet per colorectal surgery - SCDs for DVT prophylaxis - supportive care Dementia Confusion - patient's baseline - Patient oriented to self and location - continue home memantine - frequent reorientation - patient will likely need SNF at time of DC - consult case management - reconsult PT recommending rehab HTN - Pt was given IVF on 08/25 and BP improved after 2 units PRBCs - Monitor Hyperlipidemia - Cont. home meds Hypothyroidism - Cont. home meds Hypokalemia - potassium 3.0 (09/01) replaced - Mag 1.6 (09/01) - recheck BMP and mag in AM (09/01) Patient had extensive family meeting with multiple family members regarding the case (09/01) all questions answered to the best of his ability. DC to SNF once cleared by Dr. Petty Time Spent with Patient Total time spent providing and/or coordinating discharge services: Quality: VTE Deep Vein Thrombosis/Pulmonary Embolism Present on Admission: No Exam Narrative Exam Narrative: GENERAL: NAD, AAOx2, memory difficulties CARDIO: Regular rate and rhythm. RESP: Clear to auscultation. Breath sounds equal bilaterally. ABD: hypoactive BSx4 EXT: Extremities without clubbing, cyanosis, or edema. No obvious deformities. Results Completed studies during hospitalization: Pending at discharge 08/26/18 13:16 Surgical [PTH] Urgent 08/27/18 07:20 Surgical [PTH] Routine Labs on day of discharge: Labs from last 24 hours 09/01/18 09/01/18 07:02 07:02 WBC 7.9 RBC 3.51 L Hgb 11.0 L Hct 32.4 L MCV 92.2 MCH 31.3 MCHC 33.9 RDW 14.3 Plt Count 206 MPV 9.3 Prelim Diff (Auto) Slide review pending Neut % (Auto) 67.8 Lymph % (Auto) 12.1 [place] % (Auto) 17.3 H Eos % (Auto) 2.1 Baso % (Auto) 0.7 Neut # (Auto) 5.4 Lymph # (Auto) 1.0 [place] # (Auto) 1.4 H Eos # (Auto) 0.2 Baso # (Auto) 0.1 WBC Differential Manual diff final Seg Neuts % (Manual) 73 H Band Neuts % (Manual) 4 Lymphocytes % (Manual) 10 Monocytes % (Manual) 12 H Eosinophils % (Manual) 1 Abs Neuts (Manual) 6.1 Differential Comment . Platelet Estimate Normal Platelet Morphology Normal Sodium 143 Potassium 3.0 L Chloride 104 Carbon Dioxide 29.7 Anion Gap 9 BUN 10 Creatinine 0.99 Estimated GFR 53 L Random Glucose 74 Calcium 8.2 L Magnesium 1.6 Impressions ITS Impressions Abdomen/Pelvis CT 08/26/18 00:00 CONCLUSION: 1. Multiple hepatic hypodensities are overtly benign and most likely represent cysts or hemangiomas. 2. Right basilar pleural nodules and regional pleural thickening are probably atelectatic. 3. Bilateral renal cortical cysts. 4. Hydropic gallbladder. Nonspecific finding and can be seen in prolonged fasting. 5. Old kyphoplasty at L1. No acute osseous injury Chest X-Ray 08/27/18 00:00 CONCLUSION: No acute cardiopulmonary disease. There are mixed areas of sclerosis and erosive changes involving L1 vertebrae which is also compressed not adequately characterized of uncertain age. Discharge Plan Discharge Disposition Patient Disposition: 03 Discharge to SNF Discharge Condition Condition: Stable Discharge Order Discharge Orders: Discharge Order (Routine); Ordered 09/01/18 Ordered By: Lalitha Chen Discharge Details Anticipated Discharge Date: 09/02/18 Physicians Team ED Provider: Korin Mcbride ED Midlevel Provider: Eri Dudley Primary Care Provider: Kye Hodge Attending Provider: Gage Garcia Other Providers: Bud Perez ; Stiven Petty ; Aylin Guzman ; [facility] Rxs /Orders / Referrals /Forms Prescriptions: Continue buspirone 5 mg Tablet 5 mg PO TID RF: 0 simvastatin 80 mg Tablet 80 mg PO QPM RF: 0 calcium carbonate [Calcium 600] 600 mg calcium (1,500 mg) Tablet 600 mg PO BID RF: 0 magnesium oxide 400 mg (241.3 mg magnesium) Tablet 400 mg PO DAILY RF: 0 telmisartan 40 mg Tablet 40 mg PO DAILY RF: 0 levothyroxine 125 mcg Tablet 125 mcg PO DAILY RF: 0 cholecalciferol (vitamin D3) [Vitamin D3] 400 unit Capsule 400 unit PO DAILY RF: 0 bupropion HCl 150 mg Tablet Extended Release 24 Hr 150 mg PO QAM RF: 0 memantine 10 mg Tablet 10 mg PO DAILY RF: 0 galantamine 16 mg Capsule,Ext Rel. Pellets 24 Hr 16 mg PO QAM RF: 0 iron fum,xj-jevno-Khjjt,C no.9 [Integra Plus] 125 mg iron- 1 mg Capsule 1 cap PO DAILY RF: 0 desvenlafaxine 50 mg Tablet Extended Release 24 Hr 50 mg PO DAILY RF: 0 Referrals: Stiven Petty MD [Physician] - See Instructions (follow up in 1 -2 weeks) Aylin Guzman MD [Physician] - See Instructions (follow up in 3-4 weeks) Kye Hodge MD, PhD [Primary Care Provider] - See Instructions (Follow up in 1 week) Status ED Status: Left Department
[2018-09-01] MEDS ORDERED: Mag Sulf 1 gm/100 ml Premix 100 ML IV.SIG ONE (15:00)
[2018-09-02] MEDS: Levothyroxine 125 MCG Tablet PO SCH (05:30)
[2018-09-02 08:09] LABS: Carbon Dioxide 28.6 meq/L (21.0-32.0); Magnesium 1.9 mg/dL (1.5-2.5); Potassium 3.7 meq/L (3.5-5.1)
--- NOTE | 2018-09-02 08:46 | XR ---
EXAM DATE: 09/02/2018 8:30 AM EST AGE/SEX: 83 years / Female INDICATIONS: Nausea CLINICAL DATA: This is the patient's initial encounter. Patient reports that signs and symptoms have been present for 1 week and indicates a pain score of 4/10. MEDICAL/SURGICAL HISTORY: Hypertension. Kyphoplasty. COMPARISON: [facility] [place], CT ABDOMEN & PELVIS W CONTRAST, 08/26/2018. . FINDINGS: Previous kyphoplasty L1. Tortuous aorta simulating an infrarenal abdominal aortic aneurysm. Abdomina l aortic aneurysm was not present on CT of 08/1118 Nonspecific bowel gas pattern with minimal small bowel gas. No definite free air. CONCLUSION: Nonspecific small bowel gas pattern Electronically signed by: Favian Lora MD Board Certified Radiologist 09/02/2018 8:45 AM EST
--- NOTE | 2018-09-02 08:52 | P.PNIM ---
Subjective Interval history: Patient and family member reporting multiple foul smelling watery stools through the night and this AM No longer having N/V Physical Exam Vital signs: Last Vital Signs Temp 98.0 F 09/02/18 00:00 Pulse 90 09/02/18 00:00 Resp 18 09/02/18 00:00 BP 141/73 H 09/02/18 00:00 Pulse Ox 94 L 09/02/18 00:00 Narrative: GENERAL: NAD, AAOx2, memory difficulties CARDIO: Regular rate and rhythm. RESP: Clear to auscultation. Breath sounds equal bilaterally. ABD: scant hypoactive BSx4 EXT: Extremities without clubbing, cyanosis, or edema. No obvious deformities. Results Labs CBC & Chem 7: 09/01/18 07:02 09/02/18 06:16 Assessment and Plan Plan Symptomatic anemia Hx of PUD - Pt is an 83 y/o female with anemia, hx of gastric ulcer in 2017, CKD, stage 3 , memory deficits, HTN, hyperlipidemia, and hypothyroidism. [place] [facility] [place] with complaints of increased weakness and vomiting. Pt has been having issues with anemia since 04/2018 when her Hgb went from 11.5 to 10.9. In review of outpt labs her H/H has been slowly decreasing since then and on most recent outpt labs her Hgb was 8.5 on 08/13/18. She has a hx of gastric ulcer in 2016. Pt was seen by [facility] as an outpt and is reportedly set up for an outpt EGD/colonoscopy on 08/28/[address] Pelletier. Pt presented to the ED with complaints of generalized weakness, and she had an episode of vomiting this morning that was reportedly brown. She reported dark tarry stools as well but this has been going on for some time, and feels that its been since she started on iron supplements. - Labs in the ED noted Hgb 8.9. Repeat labs on 08/24 with stable Hgb 8.8 - Cont. Protonix 40mg IV BID - Zofran PRN - Encourage oral intake - Re-evaluated the pt in the afternoon on 08/24 and she had vomiting with breakfast and is feeling quite weak. - Discussed with the pt and the family at bedside that with the pts vomiting and weakness it may be difficult for her to tolerate the prep for the colonoscopy on Sunday at home for the scheduled GI procedures on Sunday. They agreed and requested GI consultation. - Appreciate consult from GI. - Cont. Antiemetics PRN - Iron panel with serum Fe 18, TIBC 297, %Sat 6.1. Pt was given IV Venofer on 08/24 and 08/25 - Repeat labs this AM with Hgb 7.8. With pt being symptomatic with low BP and some dizziness she was transfused with 2 units of PRBCs on 08/25 - Pt underwent evaluation with EGD/colonoscopy 08/26/18 --> Esophagitis, HH, moderate diverticulosis in the sigmoid colon and descending colon, and half circumferential mass was found at the cecum; multiple biopsies were performed. [place] that this is likely Ca Colon - pathology from 08/26/18 ceum bx revealed: villoglandular polyps with focus of invasive intramucosal carcinoma - CRS was consulted by GI on 08/26. - Patient S/P ascending colectomy with Dr. 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 -RESECTION MARGINS ARE NEGATIVE FOR MALIGNANCY - Case d/w Dr. Petty (08/29) - Pt is tolerating full liquids, diet advanced to regular diet per colorectal surgery 09/01 - 09/01 after eating regular diet patient had some nausea with vomiting x 1 - diet decreased to full liquid diet - KUB 09/02 nonspecific bowel gas pattern - SCDs for DVT prophylaxis - supportive care Diarrhea check stool for C diff BMP in AM Dementia Confusion - patient's baseline - Patient oriented to self and location - continue home memantine - frequent reorientation - patient will likely need SNF at time of DC - consult case management - reconsult PT recommending rehab HTN - Pt was given IVF on 08/25 and BP improved after 2 units PRBCs - Monitor Hyperlipidemia - Cont. home meds Hypothyroidism - Cont. home meds BMP pending Possible DC to SNF tomorrow once cleared by Dr. Petty Progress Note: Quality VTE Deep Vein Thrombosis/Pulmonary Embolism Present on Admission: No
[2018-09-02] MEDS: Pantoprazole Inj 40 MG Vial IV.PUSH SCH (09:43)
[2018-09-02] MEDS: buPROPion 150 MG 12 HR Tablet PO SCH (09:43)
--- NOTE | 2018-09-02 18:38 | P.PNCS ---
Subjective Colorectal Surgery Post Op Day #: 6 Interval history: afebrile, VSS UO good lilian PO lg BM Objective Result Diagrams: 09/01/18 07:02 09/02/18 06:16 Objective Remarks: Pe ALERT Abd - soft, min tympany, less tender Assessment and Plan - Plan Imp: better OOB adv diet DC plans
[2018-09-03] MEDS: Levothyroxine 125 MCG Tablet PO SCH (05:35)
[2018-09-03 08:54] VITALS: RESP 16
[2018-09-03] MEDS: buPROPion 150 MG 12 HR Tablet PO SCH (08:54)
[2018-09-03] MEDS: Pantoprazole Inj 40 MG Vial IV.PUSH SCH (08:58)
--- NOTE | 2018-09-03 09:40 | P.DS ---
DS: Providers Date of admission: 08/26/18 11:15 Primary care physician: Kye Hodge MD, PhD Consults: 08/24/18 13:08 Consult to Gastroenterology Routine Consulting Provider: Bud Perez Reason for Consultation: Anemia, vomiting. Pt scheduled for outpt EGD/ colonoscopy on Sunday but now with vomiting and weakness Notified:: Service Spoke with:: KRISTEN Date Notified:: 08/24/18 Time Notified:: 13:24 Ordering Provider: EVENS 08/26/18 14:15 Consult to Colorectal Surgery Routine Consulting Provider: Stiven Petty Reason for Consultation: colorectal mass Notified:: Office Spoke with:: Emerald Date Notified:: 08/26/18 Time Notified:: 14:19 Ordering Provider: PATO 08/30/18 12:55 Consult to Oncology Routine Consulting Provider: Darling Guzman Textile Conversion Manager:: Aylin Guzman Reason for Consultation: colon cancer, adenocarcinoma s/p surgical resection Notified:: Office Spoke with:: bev Date Notified:: 08/30/18 Time Notified:: 13:02 Ordering Provider: LEONELA 09/01/18 11:28 HUB Only Consult Order Routine Consulting Provider: [facility] Brief History from admission: Ms. Walker is an 83 y/o female with anemia, hx of gastric ulcer in 2017, CKD, stage 3, memory deficits, HTN, hyperlipidemia, and hypothyroidism. She presented to the ED at [facility] on 08/23/18 with complaints of increased weakness. Pt has been having issues with anemia since 04/2018 when her Hgb went from 11.5 to 10.9. In review of outpt labs her H/H has been slowly decreasing since then and on most recent outpt labs her Hgb was 8.5 on 08/13/18. She has a hx of gastric ulcer in 2017. Pt was seen by [facility] as an outpt and is reportedly set up for an outpt EGD/colonoscopy on 08/28/[address] Pelletier. Pt presented to the ED with complaints of generalized weakness, and she had an episode of vomiting this morning that was reportedly brown. She denies any hematemesis or coffee-ground emesis. She denies any abd pain. She has been having issues with dark stools which she reports she unclear of how long thats been going on but thinks that its been as long as shes been on iron supplements. Pt denies any SOB, chest pain, palpitations, dizziness, lightheadedness, abdominal pain, reflux, or dysphagia. Past Medical Hx: HTN Hyperlipidemia Hypothyroidism Anemia Gastric ulcer in 2017 Memory deficits Major depression DDD lumbar spine Past Surgical Hx EGD on 12/13/[address] Pelletier --> gastritis, esophagitis, duodenitis, hiatal hernia EGD on 10/16/[address] Pelletier --> gastritis, healed ulcer in the antrum EGD on 09/15/[address] Pelletier --> 2 clean based ulcers, no active bleeding. Cataracts surgery Total abdominal hysterectomy Humerus fracture repair Family Hx: Noncontributory Social Hx Denies any alcohol, tobacco or illicit drug use Lives in a private residence, has a roommate DS: Diagnosis Discharge Diagnosis (1) Abnormal colonoscopy: Status: Acute (2) GI bleed: Status: Acute (3) Iron deficiency anemia: Status: Acute DS: Summary ADENOCARCINOMA OF THE ILEOCECAL VALVE. stage III colon cancer Symptomatic anemia Hx of PUD - Pt is an 83 y/o female with anemia, hx of gastric ulcer in 2017, CKD, stage 3 , memory deficits, HTN, hyperlipidemia, and hypothyroidism. She presented to the ED at [facility] on 08/23/18 with complaints of increased weakness and vomiting. Pt has been having issues with anemia since 04/2018 when her Hgb went from 11.5 to 10.9. In review of outpt labs her H/H has been slowly decreasing since then and on most recent outpt labs her Hgb was 8.5 on 08/13/18. She has a hx of gastric ulcer in 2016. Pt was seen by [facility] as an outpt and is reportedly set up for an outpt EGD/colonoscopy on 08/28/[address] Pelletier. Pt presented to the ED with complaints of generalized weakness, and she had an episode of vomiting this morning that was reportedly brown. She reported dark tarry stools as well but this has been going on for some time, and feels that its been since she started on iron supplements. - Labs in the ED noted Hgb 8.9. Repeat labs on 08/24 with stable Hgb 8.8 - Cont. Protonix 40mg IV BID - Zofran PRN - Encourage oral intake - Re-evaluated the pt in the afternoon on 08/24 and she had vomiting with breakfast and is feeling quite weak. - Discussed with the pt and the family at bedside that with the pts vomiting and weakness it may be difficult for her to tolerate the prep for the colonoscopy on Sunday at home for the scheduled GI procedures on Sunday. They agreed and requested GI consultation. - Appreciate consult from GI. - Cont. Antiemetics PRN - Iron panel with serum Fe 18, TIBC 297, %Sat 6.1. Pt was given IV Venofer on 08/24 and 08/25 - Repeat labs this AM with Hgb 7.8. With pt being symptomatic with low BP and some dizziness she was transfused with 2 units of PRBCs on 08/25 - Pt underwent evaluation with EGD/colonoscopy 08/26/18 --> Esophagitis, HH, moderate diverticulosis in the sigmoid colon and descending colon, and half circumferential mass was found at the cecum; multiple biopsies were performed. [place] that this is likely Ca Colon - pathology from 08/26/18 ceum bx revealed: villoglandular polyps with focus of invasive intramucosal carcinoma - CRS was consulted by GI on 08/26. - Patient S/P ascending colectomy with Dr. 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 -RESECTION MARGINS ARE NEGATIVE FOR MALIGNANCY - Case d/w Dr. Petty (08/29) and (09/02) - Pt is tolerating full liquids, diet advanced to regular diet per colorectal surgery 09/01 - 09/01 after eating regular diet patient had some nausea with vomiting x 1 - diet decreased to full liquid diet - KUB 09/02 nonspecific bowel gas pattern - 09/02 diet advanced back to regular diet, patient tolerating well - SCDs for DVT prophylaxis - supportive care Diarrhea check stool for C diff, negative Discussed with Dr. Petty, he feels that stool with thicken as patient getts further out of surgery Dementia Confusion - patient's baseline - Patient oriented to self and location - continue home memantine - frequent reorientation - patient will likely need SNF at time of DC - consult case management - reconsult PT recommending rehab HTN - Pt was given IVF on 08/25 and BP improved after 2 units PRBCs - Monitor Hyperlipidemia - Cont. home meds Hypothyroidism - Cont. home meds Time Spent with Patient Total time spent providing and/or coordinating discharge services: Quality: VTE Deep Vein Thrombosis/Pulmonary Embolism Present on Admission: No Exam Narrative Exam Narrative: GENERAL: NAD, AAOx2, memory difficulties CARDIO: Regular rate and rhythm. RESP: Clear to auscultation. Breath sounds equal bilaterally. ABD: scant hypoactive BSx4 EXT: Extremities without clubbing, cyanosis, or edema. No obvious deformities. Results Completed studies during hospitalization: Pending at discharge 08/26/18 13:16 Surgical [PTH] Urgent 08/27/18 07:20 Surgical [PTH] Routine Labs on day of discharge: Labs from last 24 hours 09/03/18 09/02/18 07:37 12:00 Sodium Pending Potassium Pending Chloride Pending Carbon Dioxide Pending Anion Gap Pending BUN Pending Creatinine Pending Random Glucose Pending Calcium Pending Magnesium Pending Stl C.difficile DNA Amp Negative St C. diff Tox Epid 027 Negative Impressions ITS Impressions Abdomen/Pelvis CT 08/26/18 00:00 CONCLUSION: 1. Multiple hepatic hypodensities are overtly benign and most likely represent cysts or hemangiomas. 2. Right basilar pleural nodules and regional pleural thickening are probably atelectatic. 3. Bilateral renal cortical cysts. 4. Hydropic gallbladder. Nonspecific finding and can be seen in prolonged fasting. 5. Old kyphoplasty at L1. No acute osseous injury Chest X-Ray 08/27/18 00:00 CONCLUSION: No acute cardiopulmonary disease. There are mixed areas of sclerosis and erosive changes involving L1 vertebrae which is also compressed not adequately characterized of uncertain age. Abdomen X-Ray 09/02/18 08:00 CONCLUSION: Nonspecific small bowel gas pattern
[2018-09-03 09:54] LABS: Calcium 8.5 mg/dL (8.5-10.1); Carbon Dioxide 26.4 meq/L (21.0-32.0); Potassium 3.3 meq/L (3.5-5.1)
[2018-09-03] MEDS ORDERED: Potassium Chloride 25 MEQ Effervescent Tablet PO ONE (11:33)
[2018-09-03] MEDS ORDERED: Acetaminophen 325 MG Tablet PO PRN (12:10)
[2018-09-03 13:23] VITALS: BP 129/80; PULSE 92; TEMP 98.1; O2SAT 95
== END 2018-09-03 14:09 | DRG 330 ==
LOC: NEPE 12:24 → NEDA 12:24 → NEPHCDU 16:36 → NEDA 16:36 → N07 08-26 16:55 → HPAC 08-27 19:46 → HCPC 08-27 21:21 → N07 08-30 22:57
PROVIDERS: ADMIT Hospitalist; ATTEND Hospitalist
PROC: PANENDO (2018-08-26 09:59)
PROC: COLONOS (2018-08-26 09:59)
DX: M85.80 Other specified disorders of bone density and structure, unspecified site; F41.9 Anxiety disorder, unspecified; N18.3 Chronic kidney disease, stage 3 (moderate); K44.9 Diaphragmatic hernia without obstruction or gangrene; R54 Age-related physical debility; I12.9 Hypertensive chronic kidney disease with stage 1 through stage 4 chronic kidney disease, or unspecified chronic kidney disease; K20.9 Esophagitis, unspecified; C18.2 Malignant neoplasm of ascending colon; K64.9 Unspecified hemorrhoids; E78.5 Hyperlipidemia, unspecified; C18.0 Malignant neoplasm of cecum; E03.9 Hypothyroidism, unspecified; E87.6 Hypokalemia; D50.9 Iron deficiency anemia, unspecified; E78.00 Pure hypercholesterolemia, unspecified; F03.90 Unspecified dementia, unspecified severity, without behavioral disturbance, psychotic disturbance, mood disturbance, and anxiety; Z87.11 Personal history of peptic ulcer disease; F32.9 Major depressive disorder, single episode, unspecified; K57.30 Diverticulosis of large intestine without perforation or abscess without bleeding; M19.90 Unspecified osteoarthritis, unspecified site; M51.36 Other intervertebral disc degeneration, lumbar region
CPT/HCPCS: 36430; 71020; 71046; 74000; 74018; 74177; 80048; 80053; 81001; 81210; 81275; 81276; 81311; 82040; 82378; 82728; 83540; 83550; 83735; 84484; 85025; 85610; 85730; 86850; 86900; 86901; 86923; 87493; 88305; 88307; 88309; 88341; 88342; 88343; 88381; 90761; 93005; 94150; 96361; 96365; 96366; 96375; 96376; 97161; 97164; 99285; C9113; G0378; G0461; G0462; G8987; G8988; J0330; J0690; J1100; J1756; J1940; J2270; J2405; J2550; J2704; J2765; J3010; J3475; J3480; J7030; J7040; J7120; P9016; Q9963; Q9967